=== PATIENT | female | born 1995 | race Caucasian/White ===

== ENCOUNTER 2023-01-30 10:01 | Outpatient (OUT) | payer MEDICAID, SELFPAY ==
--- NOTE | 2023-01-30 10:10 | MR_ITS ---
The [address] [address] Patient Name: KASSY BURGOS MRN: [id number] date: 1995 Sex: F Assigned Patient Location: MRI Current Patient Location: MRI Accession/Order Number: [id number] Exam Date: 01/30/2023 10:16 Report Date: 01/30/2023 12:35 At the request of: NON-STAFF PHYSICIAN Procedure: MR head/brain wo/w con MR head/brain wo/w con, 01/30/2023 10:16 AM EDT INDICATION: Chronic Migraine G43.709, Ataxia R27.0 COMPARISON: There is no appropriate prior study for comparison. TECHNIQUE: Multiplanar, multisequential MRI images of brain were obtained without and with injection of contrast. FINDINGS: The cerebral sulci as well as ventricular system are appropriate for age. There is no restricted diffusion. There is no intracranial mass, mass effect, midline shift, intra or extra-axial fluid collection or large hemorrhage. No abnormal enhancing lesion is noted. Normal flow-void in the intracranial vessels is noted. The visualized portions of orbits, mastoid air cells as well as paranasal sinuses are unremarkable. MR/MR head/brain wo/w con IMPRESSION: Normal MRI of the head. Electronically authenticated by: ZEFERINO SHER Date: 01/30/2023 12:35
== END 2023-01-30 10:02 | disposition home or self-care (01) ==
LOC: MRI 10:04
PROVIDERS: PCP Family Medicine
DX: G43.709 Chronic migraine without aura, not intractable, without status migrainosus (principal); R27.0 Ataxia, unspecified
CPT/HCPCS: 70553; A9575

== ENCOUNTER 2024-04-29 08:45 | Outpatient (OUT) | payer MEDICAID, SELFPAY ==
[2024-04-29 09:06] LABS: Basophils Percent Auto 0.6 % (0.2-2.0); Eosinophils Absolute Auto 0.2 10^3/uL (0.0-0.7); Eosinophils Percent Auto 3.2 % (0.9-7.0); Hematocrit 40.4 % (36.0-48.0); Hemoglobin 13.9 g/dL (12.0-16.0); Immature Granulocytes Abs Auto 0.03 10^3/uL (0.00-0.03); Immature Granulocytes Pct Auto 0.4 % (0.0-0.5); Lymphocytes Absolute Auto 1.5 10^3/uL (1.2-3.8); Lymphocytes Percent Auto 21.9 % (20.5-60.0); Mean Corpuscular HGB Conc 34.4 g/dL (29.9-35.2); Mean Corpuscular Hemoglobin 29.3 pg (26.7-34.0); Mean Corpuscular Volume 85.2 fL (81.0-99.0); Mean Platelet Volume 10.1 fL (9.5-13.5); Monocytes Absolute Auto 0.3 10^3/uL (0.3-0.8); Monocytes Percent Auto 4.5 % (1.7-12.0); Neutrophils Absolute Auto 4.8 10^3/uL (1.4-6.5); Neutrophils Percent Auto 69.4 % (43.0-75.0); Platelet Count 260 10^3/uL (150-450); Red Blood Count 4.74 10^6/uL (4.20-5.40); Red Cell Distribution Width 11.6 % (11.0-15.0); White Blood Count 6.9 10^3/uL (4.0-11.0)
[2024-04-29 09:11] LABS: Estimated Average Glucose 91 mg/dL; Glycohemoglobin A1C 4.8 % (4.5-6.2)
[2024-04-29 09:29] LABS: Alanine Aminotransferase 20 U/L (14-59); Albumin Level 3.3 g/dL (3.4-5.0); Alkaline Phosphatase 39 U/L (46-116); Anion Gap 11.4; Aspartate Amino Transferase 15 U/L (15-37); BUN Creatinine Ratio 11.7; Bilirubin Direct 0.1 mg/dL (0.0-0.2); Bilirubin Total 0.5 mg/dL (0.2-1.0); Calcium 8.9 mg/dL (8.5-10.1); Carbon Dioxide 28.7 mmol/L (21.0-32.0); Chloride 107 mmol/L (98-107); Estimated GFR (African America >60 (>=60 mL/min/1.73m^2); Estimated GFR (Non-African Ame >60 (>=60 mL/min/1.73m^2); Globulin 3.2 g/dL; Glucose 89 mg/dL (74-106); Potassium 4.1 mmol/L (3.5-5.1); Sodium 143 mmol/L (136-145); Total Protein 6.5 g/dL (6.4-8.2)
[2024-04-30 04:07] LABS: Insulin 5.8 uIU/mL (2.6-24.9)
== END 2024-04-29 08:46 | disposition home or self-care (01) ==
LOC: LAB 08:47
PROVIDERS: PCP Family Medicine; Visit Provider Family Medicine
DX: E16.2 Hypoglycemia, unspecified (principal); R42 Dizziness and giddiness
CPT/HCPCS: 36415; 80048; 80076; 83036; 83525; 85025

== ENCOUNTER 2024-06-26 10:15 | Outpatient (OUT) | payer MEDICAID, SELFPAY ==
--- OUTSIDE RECORDS SUMMARY | 2024-06-26 10:25 | XMS_ITS | CCD ---
Author Organization [facility] Care Team Providers [employer] F[employer] Professor Name Role Phone MARLON QUINONES Ludin Unavailable Unavailable ANNABELLE TORRES Unavailable Unavailable Matias, Brittney Unavailable CHANDANA DUFFY Admitting Unavailable ALTON .CHANDANA Attending Unavailable MATIAS, BRITTNEY Primary Care Unavailable ALTON . CHANDANA Consulting Unavailable MATIAS, BRITTNEY Admitting Unavailable MATIAS, BRITTNEY Attending Unavailable MATIAS, BRITTNEY Primary Care Unavailable MATIAS, BRITTNEY Consulting Unavailable Cary Barahona Unavailable NON STAFF Primary Care Provider UnavailMD Taqueria Gallegos Attending Provider YEMI BELTRAN Attending Unavailable RJ WALTON Attending Unavailable YEMI BELTRAN Attending Unavailable [place], Cary Admitting Unavailable Cary Barahona Attending Unavailable NON STAFF Primary Care Unavailable NON STAFF Primary Care Unavailable Taqueria Blackwell Admitting Unavailab Taqueria Harris Attending UnavailYemi Iqabl MD Primary Care Provider YEMI BELTRAN Primary Care Unavailable LINDSAY CORONEL Attending Unavailable YEMI BELTRAN Primary Care Unavailable Allergies Allergy Classification Reported Allergen(s) Allergy Type Date of Onset Reaction(s) Facility (9 sources) penicillAMINE Drug Allergy rash [facility] Other (1 source) Penicillin Drug Allergy [facility] Repository (1 source) penicillAMINE Drug Allergy 4 [facility] Repository (4 sources) penicillAMINE Drug Allergy 4 [facility] Work Phone: (5 sources) Penicillins; Translations: [PENICILLINS] Drug Allergy 9 Hives, Rash [facility] Medications Current Medications Medication Drug Class(es) Dates Sig (Normalized) Sig (Original) [id number] 200 actuat albuterol 0.09 mg/actuat metered dose inhaler (6 sources) beta2-Adrenergic Agonist Start: 10-26-2022 Ventolin HFA 108 (90 Base) MCG/ACT inhaler 10/26/2022 Active take 1 puff(s) by in halation every four hours as needed Albuterol Sulfate HFA 108 (90 Base) MCG/ACT 1 puff as needed Inhalation every 4 hrs Active take 1 puff(s) by in halation every four hours as needed Albuterol Sulfate HFA 108 (90 Base) MCG/ACT 1 puff as needed Inhalation every 4 hrs Active amitriptyline hydrochloride 50 mg oral tablet (4 sources) Tricyclic Antidepressant Start: 01-02-2024 take 1 tablet by mouth at bedtime amitriptyline (Elavil) 50 MG tablet Indications: Migraine with aura and without status migrainosus, not intractable (CMS/HCC) Take 1 tablet (50 mg) by mouth at bedtime 30 tablet 5 01/02/2024 Active dexmethylphenidate hydrochloride 10 mg oral tablet (2 sources) Central Nervous System Stimulant take 2 tablets by mouth every twelve hours Focalin 10 MG 2 tablet Orally Twice a day Active 168 hr ethinyl estradiol 0.18403 mg/hr / norelgestromin 0.30592 mg/hr transdermal system (5 sources) Progestin, Estrogen Start: 02-13-2024 apply 1 dose transdermal route every week norelgestromin-e thinyl estradiol (Ortho-Evra) 150-35 MCG/24HR Indications: Encounter for female control APPLY 1 PATCH WEEKLY FOR 3 WEEKS THEN REMOVE FOR 1 WEEK 3 patch 3 02/13/2024 Active Start: 09-12-2023 Norelgestromin -Ethin.Estradiol (Xulane) 150-35 mcg/24 hr patch weekly Active PATCH TOPICAL September 12, 2023 12:00am FLUoxetine 20 mg oral capsule (6 sources) Serotonin Reuptake Inhibitor Start: 01-02-2024 take 1 capsule by mouth once daily FLUoxetine (PROzac) 20 MG capsule Indications: Major depressive disorder, recurrent episode, mild (HCC) (CMS/HCC) Take 1 capsule (20 mg) by mouth Daily 30 capsule 5 01/02/2024 Active Start: 09-12-2023 Fluoxetine Act fatemeh MG PO September 12, 2023 12:00am Start: 09-12-2023 Fluoxetine Act fatemeh MG PO September 12, 2023 12:00am fluticasone propionate 0.05 mg/actuat metered dose nasal spray (1 source) Corticosteroid Start: 09-12-2023 take 1 spray(s) nasal route twice daily Fluticasone Propionate (Flonase Allergy Relief) 50 mcg/actuation spray,suspension Active 1 SPRAY INTRANASAL Twice daily 16 14 September 12, 2023 12:00am administer 1 spray into each nostril lamoTRIgine 25 mg oral tablet (4 sources) Mood Stabilizer, Anti-epileptic Agent Start: 01-02-2024 take 1 tablet by mouth once daily at bedtime, then take 2 tablets by mouth once daily at bedtime lamoTRIgine (LaMICtal) 25 MG tablet Indications: Major depressive disorder, recurrent episode, mild (HCC) (CMS/HCC) 1 PO QHS x 2 weeks then 2 PO QHS 60 tablet 3 01/02/2024 Active levoFLOXacin 750 mg oral tablet (3 sources) Quinolone Antimicrobial Start: 04-25-2024 End: 05-02-2024 take 1 tablet by mouth once daily levoFLOXacin (Levaquin) 750 MG tablet Indications: Acute non-recurrent pansinusitis Take 1 tablet (750 mg) by mouth Daily for 7 days 7 tablet 04/25/2024 05/02/2024 Active ondansetron 4 mg disintegrating oral tablet (5 sources) Serotonin-3 Receptor Antagonist Start: 02-23-2024 take 1 tablet by mouth every six hours for nausea ondansetron ODT (Zofran-ODT) 4 MG disintegrating tablet Indications: Migraine with aura and without status migrainosus, not intractable (CMS/HCC) Take 1 tablet (4 mg) by mouth every 6 (six) hours if needed for nausea or vomiting 30 tablet 02/23/2024 Active Start: 09-12-2023 take 8 mg by mouth e very eight hours Ondansetron Hcl Active 8 MG PO Q8H 21 7 September 12, 2023 12:00am rizatriptan 10 mg disintegrating oral tablet (9 sources) Serotonin-1b and Serotonin-1d Receptor Agonist Start: 04-25-2024 rizatriptan [employer] (Maxalt-[employer]) 10 MG disintegrating tablet Indications: Migraine with aura and without status migrainosus, not intractable (CMS/HCC) DISSOLVE 1 TABLET ON THE TONGUE AT ONSET OF HEADACHE NEEDED. REPEAT IN 2 HOURS IF NEEDED 9 tablet 5 04/25/2024 Active Start: 04-25-2024 rizatriptan ML T (Maxalt-[employer]) 10 MG disintegrating tablet Indications: Migraine with aura and without status migrainosus, not intractable (CMS/HCC) DISSOLVE 1 TABLET ON THE TONGUE AT ONSET OF HEADACHE NEEDED. REPEAT IN 2 HOURS IF NEEDED 9 tablet 5 04/25/2024 Active Start: 04-23-2024 End: 04-25-2024 rizatriptan (Maxalt) 10 MG t ablet Indications: Migraine with aura and without status migrainosus, not intractable (CMS/HCC) Take 1 tablet (10 mg) by mouth 1 (one) time if needed for migraine May repeat in 2 hours x1 9 tablet 2 04/23/2024 04/25/2024 Discontinued Start: 09-12-2023 Rizatriptan Ac tive MG PO September 12, 2023 12:00am take 1 tablet by raghav th every twenty-four hours Rizatriptan Benzoate 10 MG 1 tablet Orally Once a day Active traZODone hydrochloride 100 mg oral tablet (2 sources) Serotonin Reuptake Inhibitor take 1 tablet by mouth every twenty-four hours traZODone HCl 100 MG 1 tablet at bedtime Orally Once a day Active triamcinolone acetonide 1 mg/ml topical cream (10 sources) Corticosteroid Start: 021 Triamcinolone Acetonide 0.1 % 1 application to affected area Externally Twice a day for 5 days Mar, Active Start: 07-24-2020 KENALOG - 10 m g Jul, 40 mg Wrist Splint/Right XL - (2 sources) Start: 04-26-2023 Wrist Splint/R ight XL - as directed Apr, Active Completed/Discontinued Medications Medication Drug Class(es) Dates Sig (Normalized) Sig (Original) CAM Boot as directed (6 sources) Start: 11-29-2021 CAM Boot as directed as directed as directed as directed for as directed Nov, Not-Taking/PRN Start: 11-29-2021 CAM Boot as di rected as directed as directed as directed for as directed Nov, Not-Taking Start: 11-29-2021 CAM Boot as di rected as directed as directed as directed for as directed Nov, Active cloNIDine hydrochloride 0.1 mg oral tablet (9 sources) Central alpha-2 Adrenergic Agonist Start: 07-17-2020 take 1 tablet by mouth once daily at bedtime cloNIDine HCl 0.1 MG 1 tablet Orally Once a day at bedtime for 30 day(s) Jun, Not-Taking/PRN dexamethasone 1 mg/ml / tobramycin 3 mg/ml ophthalmic suspension (6 sources) Aminoglycoside Antibacterial, Corticosteroid Start: 11-29-2021 take 1 drop(s) into the eye(s) three times daily as needed Tobramycin-dexAMETHas one 0.3-0.1 % 1 drop into affected eye Ophthalmic Three times a day for 5 day(s) Nov, Not-Taking/PRN famotidine 20 mg oral tablet (9 sources) Histamine-2 Receptor Antagonist Start: 07-24-2020 take 1 tablet by mouth every twelve hours Famotidine 20 MG 1 tablet Orally Twice a day for 7 days Jul, Not-Taking/PRN hydrOXYzine hydrochloride 10 mg oral tablet (9 sources) Antihistamine Start: 07-13-2020 take 1 tablet by mouth twice daily as needed hydrOXYzine HCl 10 MG 1 tablet as needed Orally twice daily for 30 day(s) Jun, Not-Taking/PRN methylPREDNISolone 4 mg oral tablet (5 sources) Corticosteroid Start: 06-02-2022 methylPREDNISolone 4 MG as directed Orally Once a day for 6 days May, Not-Taking/PRN Start: 04-19-2021 methylPREDNISo lone 4 MG as directed Orally Once a day for 6 days Mar, Active mupirocin 0.02 mg/mg topical ointment (6 sources) RNA Synthetase Inhibitor Antibacterial Start: 11-29-2021 Mupirocin 2 % 1 application to affected area Externally 2 times a day for 7 days Nov, Not-Taking/PRN tobramycin 3 mg/ml ophthalmic solution (6 sources) Aminoglycoside Antibacterial Start: 11-29-2021 take 2 drop(s) into the eye(s) three times daily as needed Tobramycin 0.3 % 2 drop into affected eye Ophthalmic tid for 5 days Nov, Not-Taking/PRN Start: 11-29-2021 take 2 drop(s) into the eye(s) three times daily Tobramycin 0.3 % 2 drop into affected eye Ophthalmic tid for 5 days Nov, Not-Taking 24 hr venlafaxine 37.5 mg extended release oral capsule (9 sources) Serotonin and Norepinephrine Reuptake Inhibitor Venlafaxine HCl ER 3 7.5 MG TAKE 1 CAPSULE BY MOUTH EVERY DAY WITH FOOD Orally Once a day for 30 days Not-Taking/PRN take 1 capsule by mo uth once daily at mealtime Venlafaxine HCl ER 150 MG TAKE 1 CAPSULE BY MOUTH EVERY DAY WITH FOOD for 30 Active Problems Active Problems Problem Classification Problem Date Documented Date Episodic/Chronic Adjustment disorders (7 sources) Grief finding; Translations: [Adjustment disorder with depressed mood] Chronic Anxiety disorders (20 sources) Posttraumatic stress disorder; Translations: [Post-traumatic stress disorder, unspecified] Onset: 04-26-2023 04-26-2023 Chronic Attention-deficit, conduct, and disruptive behavior disorders (5 sources) Attention deficit hyperactivity disorder; Translations: [Attention-deficit hyperactivity disorder, unspecified type] Chronic Attention-deficit, conduct, and disruptive behavior disorders (4 sources) Attention deficit hyperactivity disorder, combined type; Translations: [Attention-deficit hyperactivity disorder, combined type] Onset: 04-26-2023 04-26-2023 Chronic Conditions associated with dizziness or vertigo (5 sources) Lightheadedness; Translations: [Dizziness and giddiness] Onset: 04-25-2024 04-25-2024 Episodic Headache; including migraine (6 sources) Migraine with aura; Translations: [Migraine with aura, not intractable, without status migrainosus] Onset: 10-10-2023 10-10-2023 Chronic Immunizations and screening for infectious disease (4 sources) Contact with and (suspected) exposure to infections with a predominantly sexual mode of transmission; Translations: [CONTCT W EXPOS INFECT SEXUAL TRNSMS] Onset: 07-13-2022 Episodic Menstrual disorders (13 sources) Amenorrhea; Translations: [Amenorrhea, unspecified] Onset: 09-10-2021 Resolved: 09-10-2021 Chronic Mood disorders (4 sources) Recurrent major depressive episodes, mild ; Translations: [Major depressive disorder, recurrent, mild] Onset: 04-26-2023 04-26-2023 Chronic Nonspecific chest pain (3 sources) Chest pain, unspecified; Translations: [Chest pain] Onset: 03-21-2024 Episodic Other endocrine disorders (5 sources) Hypoglycemia; Translations: [Hypoglycemia, unspecified] Onset: 04-25-2024 04-25-2024 Chronic Other female genital disorders (1 source) Other specified noninflammatory disorders of vagina; Translations: [OTH SPEC NONINFLAMMATORY D/O VAGINA] Onset: 07-16-2022 Episodic Other inflammatory condition of skin (4 sources) Psoriasis; Translations: [Psoriasis, unspecified] Onset: 04-26-2023 04-26-2023 Chronic Other lower respiratory disease (1 source) Shortness of breath; Translations: [Shortness of breath] Onset: 04-23-2024 Episodic Other nervous system disorders (9 sources) Loss of taste; Translations: [Parageusia] Episodic Other non-traumatic joint disorders (3 sources) Effusion, right knee; Translations: [Effusion, right knee] Onset: 09-20-2017 Episodic Other non-traumatic joint disorders (1 source) Pain in right knee Episodic Other non-traumatic joint disorders (2 sources) Pain in right wrist Episodic Other upper respiratory infections (15 sources) Streptococcal sore throat; Translations: [Strep throat] Onset: 04-23-2024 04-25-2024 Episodic Pleurisy; pneumothorax; pulmonary collapse (1 source) Pleurisy; Translations: [Pleurisy] Onset: 03-21-2024 Episodic Residual codes; unclassified (9 sources) Insomnia; Translations: [Insomnia, unspecified] Episodic Superficial injury; contusion (2 sources) Contusion of right hand, initial encounter Episodic Unclassified (1 source) Pain in right wrist; Translations: [Pain in right wrist] Onset: 04-26-2023 Past or Other Problems Problem Classification Problem Date Documented Da te Episodic/Chronic E Codes: Natural/environment (1 source) Bitten or stung by nonvenomous insect and other nonvenomous arthropods, initial encounter Onset: 04-19-2021 Resolved: 04-19-2021 Episodic Inflammation; infection of eye (except that caused by tuberculosis or sexually transmitteddisease) (1 source) Unspecified acute conjunctivitis, left eye Onset: 11-29-2021 Resolved: 11-29-2021 Episodic Other injuries and conditions due to external causes (1 source) Unspecified injury of left foot, initial encounter Onset: 11-29-2021 Resolved: 11-29-2021 Episodic Other injuries and conditions due to external causes (1 source) Unspecified injury of left wrist, hand and finger(s), initial encounter Onset: 11-29-2021 Resolved: 11-29-2021 Episodic Other lower respiratory disease (5 sources) Dyspnea; Translations: [Shortness of breath] Onset: 04-26-2023 04-26-2023 Episodic Residual codes; unclassified (4 sources) Persistent insomnia; Translations: [Insomnia, unspecified] Onset: 04-26-2023 04-26-2023 Episodic Sprains and strains (1 source) Unspecified sprain of left foot, initial encounter Onset: 11-29-2021 Resolved: 11-29-2021 Episodic Results Test Name Value Interpretation Reference Range Facility ALL CBC WITH AUTO DIFFon BASOPHILS ABSOLUTE AUTO 0 [facility] Basophils/100 WBC (Bld) 0.6 % 0.2 - 2.0 % [facility] Eosinophils/100 WBC (Bld) 3.2 % 0.9 - 7.0 % [facility] Erythrocyte distribution width (RBC) [Ratio] 11.6 % 11.0 - 15.0 % [facility] Hematocrit (Bld) [Volume fraction] 40.4 % 36.0 - 48.0 % [facility] Hem[facility] (Bld) [Mass/Vol] 13.9 g/dL 12.0 - 16.0 g/dL [facility] IMMATURE GRANULOCYTES ABS AUTO 0.03 [facility] Immature granulocytes/100 WBC (Bld) 0.4 % 0.0 - 0.5 % [facility] LYMPHOCYTES ABSOLUTE AUTO 1.5 [facility] Lymphocytes/100 WBC (Bld) 21.9 % 20.5 - 60.0 % [facility] MCH (RBC) [Entitic mass] 29.3 pg 26.7 - 34.0 pg [facility] MCHC (RBC) [Mass/Vol] 34.4 g/dL 29.9 - 35.2 g/dL [facility] MCV (RBC) [Entitic vol] 85.2 fL 81.0 - 99.0 fL [facility] MONOCYTES ABSOLUTE AUTO 0.3 [facility] Monocytes/100 WBC (Bld) 4.5 % 1.7 - 12.0 % [facility] NEUTROPHILS ABSOLUTE AUTO 4.8 [facility] Neutrophils/100 WBC (Bld) 69.4 % 43.0 - 75.0 % [facility] Platelet mean volume (Bld) [Entitic vol] 10.1 fL 9.5 - 13.5 fL [facility] TBH EO # 0.2 [facility] PLT 260 [facility] RBC 4.74 [facility] WBC 6.9 [facility] AND AUTO DIFFon 04-23-20 24 ABSOLUTE BASOPHIL 0.1 X10E9/L Normal 0.0-0.2 [facility] Comment on above: Performed By: #### C ADALBERTO CMP, 79399-8, 74724-1, 40334-0 #### [facility] ([id number]) [address] [place] [address] 81805 ABSOLUTE NEUTROPHIL 5.9 X10E9/L Normal 1.5-6.[address] [facility] Comment on above: Performed By: #### Ludin GLOVER CMP, 93863-8, 70182-3, 04891-3 #### [facility] ([id number]) [address] [place] [address] 03186 Basophils/100 WBC (Bld) 0.6 % Normal [facility] Comment on above: Performed By: #### Ludin GLOVER, CMP, 79853-6, 21337-2, 96547-7 #### [facility] ([id number]) [address] [place] [address] 74772 Eosinophils (Bld) [#/Vol] 0.1 10*3/uL Normal 0.0-0.4 [facility] Comment on above: Performed By: #### C BCA, CMP, 19530-0, 56980-3, 81934-8 #### [facility] ([id number]) [address] [place] [address] 18144 Eosinophils/100 WBC (Bld) 0.9 % Normal [facility] Comment on above: Performed By: #### C BCA, CMP, 20104-8, , 20385-2 #### [facility] ([id number]) [address] [place] [address] 31605 Erythrocyte distribution width (RBC) [Ratio] 12.6 % Normal 11.5-15.0 [facility] Comment on above: Performed By: #### Ludin BCA, CMP, 72031-1, , 14471-0 #### [facility] ([id number]) [address] [place] [address] 22992 Hematocrit (Bld) [Volume fraction] 38.1 % Normal 35-47 [facility] Comment on above: Performed By: #### C BCA, CMP, 34830-6, , 28088-3 #### [facility] ([id number]) [address] [place] [address] 47273 Hemoglobin (Bld) [Mass/Vol] 13.4 g/dL Normal 11.7-15.5 [facility] Comment on above: Performed By: #### C BCA, CMP, 09421-6, , 91993-6 #### [facility] ([id number]) [address] [place] [address] 07960 Lymphocytes (Bld) [#/Vol] 1.7 10*3/uL Normal 1.0-3.5 [facility] Comment on above: Performed By: #### Ludin BCA, CMP, 28609-6, , 42137-1 #### [facility] ([id number]) [address] [place] [address] 85328 Lymphocytes/100 WBC (Bld) 20.3 % Normal [facility] Comment on above: Performed By: #### C ADALBERTO, CMP, 04913-3, 82694-9, 29758-9 #### [facility] ([id number]) [address] [place] [address] 09838 MCH (RBC) [Entitic mass] 29.5 pg Normal 27-34 [facility] Comment on above: Performed By: #### C ADALBERTO, CMP, 39572-3, , 74061-3 #### [facility] ([id number]) [address] [place] [address] 66462 MCHC (RBC) [Mass/Vol] 35.3 g/dL Normal 32-36 [facility] Comment on above: Performed By: #### C ADALBERTO, CMP, 27856-0, , 66839-5 #### [facility] ([id number]) [address] [place] [address] 49693 MCV (RBC) [Entitic vol] 84 fL Normal 80-100 [facility] Comment on above: Performed By: #### C ADALBERTO, CMP, 97115-3, , 05709-5 #### [facility] ([id number]) [address] [place] [address] 56774 Monocytes (Bld) [#/Vol] 0.5 10*3/uL Normal 0-0.9 [facility] Comment on above: Performed By: #### C BCA, CMP, 00384-2, , 05721-9 #### [facility] ([id number]) [address] [place] [address] 85828 Monocytes/100 WBC (Bld) 5.8 % Normal [facility] Comment on above: Performed By: #### C BCA, CMP, 22699-7, 69275-7, 92700-1 #### [facility] ([id number]) [address] [place] [address] 97289 Neutrophils/100 WBC (Bld) 72.4 % Normal [facility] Comment on above: Performed By: #### Ludni BCA, CMP, 26516-1, 66175-2, 08009-0 #### [facility] ([id number]) [address] [place] [address] 33844 Platelet mean volume (Bld) [Entitic vol] 8.2 fL Normal 7-12 [facility] Comment on above: Performed By: #### C BCA, CMP, 07576-6, 47958-7, 77316-2 #### [facility] ([id number]) [address] [place] [address] 31842 Platelets (Bld) [#/Vol] 276 10*3/uL Normal 150-450 [facility] Comment on above: Performed By: #### C BCA, CMP, 59491-9, 90140-7, 78323-9 #### [facility] ([id number]) [address] [place] [address] 90786 RBC COUNT 4.56 X10E12/L Normal 3.80-5.20 [facility] Comment on above: Performed By: #### Ludin BCA, CMP, 01878-4, , 10923-9 #### [facility] ([id number]) [address] [place] [address] 82019 WBC (Bld) [#/Vol] 8.2 10*3/uL Normal 4.0-11.0 [facility] Comment on above: Performed By: #### Ludin BCA, CMP, 84600-6, 37653-0, 17019-5 #### [facility] ([id number]) [address] [place] [address] 18254 COMPREHENSIVE METABOLIC PANE Marbin 04-23-2024 Albumin [Mass/Vol] 4.0 g/dL Normal 3.2-5.3 [facility] Comment on above: Performed By: #### C BCA, CMP, 24975-1, 21701-9, 56136-1 #### [facility] ([id number]) [address] [place] [address] 19693 ALP [Catalytic activity/Vol] 39 U/L Normal 39-130 [facility] Comment on above: Performed By: #### C BCA, CMP, 98086-7, 08880-4, 14724-4 #### [facility] ([id number]) [address] [place] [address] 13464 ALT [Catalytic activity/Vol] 15 U/L Normal 0-31 [facility] Comment on above: Performed By: #### C BCA, CMP, 77133-5, 87147-5, 71536-5 #### [facility] ([id number]) [address] [place] [address] 25088 Anion gap [Moles/Vol] 9 mmol/L Normal 5-15 [facility] Comment on above: Performed By: #### C BCA, CMP, 69189-6, 80624-8, 48560-8 #### [facility] ([id number]) [address] [place] [address] 57840 AST [Catalytic activity/Vol] 19 U/L Normal 0-41 [facility] Comment on above: Performed By: #### C BCA, CMP, 79714-8, 20500-3, 00350-2 #### [facility] ([id number]) [address] [place] [address] 94593 Bilirubin [Mass/Vol] 0.6 mg/dL Normal 0.3-1.2 [facility] Comment on above: Performed By: #### C BCA, CMP, 22669-7, 94236-3, 75562-0 #### [facility] ([id number]) [address] [place] [address] 71029 Calcium [Mass/Vol] 8.9 mg/dL Normal 8.5-10.5 [facility] Comment on above: Performed By: #### C BCA, CMP, 81520-4, 93502-1, 65192-9 #### [facility] ([id number]) [address] [place] [address] 94769 Chloride [Moles/Vol] 103 mmol/L Normal 98-109 [facility] Comment on above: Performed By: #### C BCA, CMP, 54035-1, 91755-9, 75556-9 #### [facility] ([id number]) [address] [place] [address] 23427 CO2 [Moles/Vol] 23 mmol/L Normal 22-32 [facility] Comment on above: Performed By: #### C BCA, CMP, 41722-7, 35802-1, 92196-9 #### [facility] ([id number]) [address] [place] [address] 69926 Creatinine [Mass/Vol] 0.62 mg/dL Normal 0.40-1.00 [facility] Comment on above: Result Comment: METH OD TRACEABLE TO IDMS STANDARD Performed By: #### C BCA, CMP, 16051-6, 60319-2, 49782-3 #### [facility] ([id number]) [address] [place] [address] 91027 eGFR (CKD-EPI) NON-RACE DEPENDENT >90 Normal >59 [facility] Comment on above: Result Comment: Reported eGFR is based on the CKD-EPI 2020 equation that does not use a race coefficient. Performed By: #### C BCA, CMP, 37821-7, 77412-6, 85617-8 #### [facility] ([id number]) [address] [place] [address] 55249 Glucose [Mass/Vol] 111 mg/dL High 65-99 [facility] Comment on above: Performed By: #### C ADALBERTO, CMP, 37250-2, 02581-6, 45586-0 #### [facility] ([id number]) [address] [place] [address] 64460 Potassium [Moles/Vol] 3.4 mmol/L Low 3.5-5.0 [facility] Comment on above: Performed By: #### C ADALBERTO, CMP, 18509-0, 82158-1, 52541-1 #### [facility] ([id number]) [address] [place] [address] 67241 Protein [Mass/Vol] 6.8 g/dL Normal 6.0-8.0 [facility] Comment on above: Performed By: #### Ludin GLOVER, CMP, 19179-1, 17389-0, 06328-5 #### [facility] ([id number]) [address] [place] [address] 84955 Sodium [Moles/Vol] 135 mmol/L Normal 134-146 [facility] Comment on above: Performed By: #### Ludin GLOVER, CMP, 02181-5, 97587-8, 38521-1 #### [facility] ([id number]) [address] [place] [address] 42910 Urea nitrogen [Mass/Vol] 14 mg/dL Normal 5-23 [facility] Comment on above: Performed By: #### C BCA, CMP, 97779-3, 96875-1, 05741-6 #### [facility] ([id number]) [address] [place] [address] 18250 Fibrin D-dimer DDU (PPP) [Ma ss/Vol]on 04-23-2024 D DIMER <150 Normal <255 [facility] Comment on above: Result Comment: Results <255 ng/mL DDU: The presence of a VTE can safely be excluded with a negative D-Dimer result and Wells score. A negative result doesn't exclude the possibility of DIC. The test be repeated along with other diagnostic tests if the patient's symptoms persist or worsen. [email or web address] Performed By: #### C BCA, CMP, 97268-9, 71851-2, PINR, 64971-8, 31581-5 #### [facility] ([id number]) [address] [place] [address] 40076 MAGNESIUMon 04-23-2024 Magnesium [Mass/Vol] 2.0 mg/dL Normal 1.8-2.6 [facility] Comment on above: Performed By: #### C BCA, CMP, 67320-8, 31589-8, PINR, 44618-2, 66016-9 #### [facility] ([id number]) [address] [place] [address] 77357 SARS/FLU A+B/RSV by NAAT/Mol ecularon 04-23-2024 SARS/FLU A+B/RSV by NAAT/Molecular FLU A PCR Negative (qualifier value) FLU B PCR Negative (qualifier value) RSV by PCR Negative (qualifier value) SARS CoV 2 Not detected (qualifier value) NOTE The Xpert Xpress SARS-CoV-2/Flu/RSV Plus test is a rapid, multiplexed real-time RT-PCR test intended for the simultaneous qualitative detection and differentiation of SARS-CoV-2, influenza A, influenza B and respiratory syncytial virus (RSV) viral RNA from individuals suspected of respiratory viral infection consistent with COVID-19 by their healthcare provider. This test has not been validated in asymptomatic patients. The Xpert Xpress SARS-CoV-2 test is intended for use by qualified and trained operators who are performing tests using either [employer] or [employer] systems and is limited to laboratories that meet the CLIA requirements to perform high and moderate complexity tests. The Xpert Xpress SARS-CoV-2/Flu/RSV Plus is only for use under the Food and Drug Administration's Emergency Use Authorization. Results are for the simultaneous detection and differentiation of SARS-CoV-2, influenza A, influenza B and RSV nucleic acids in clinical specimens. SARS-CoV-2, influenza A, influenza B and RSV RNA identified by this test are generally detectable in upper respiratory samples during the acute phase of infection. Positive results are indicative of the presence of the identified virus, but do not rule out bacterial infection or co-infection with other pathogens not detected by this test. Clinical correlation with patient history and other diagnostic information is necessary to determine patient infection status. The agent detected may not be the definite cause of disease. Negative results do not preclude SARS-CoV-2, influenza A, influenza B and RSV infection and should not be used as the sole basis for treatment or other patient management decisions. Negative results must be combined with clinical observations, patient history and epidemiological information. An Invalid result may occur with specimen-associated inhibition unable to be resolved with specimen repeat. Fact Sheet for Healthcare Providers: https://www.fda.gov/ media/612167/downloa d Fact Sheet for Patients: https://www.fda.gov/ media/078062/downloa d Normal [facility] Troponin I.cardiac High sens itivity method [Mass/Vol]on 04-23-2024 TROPONIN I, HIGH SENSITIVITY <2 Normal <16 [facility] Comment on above: Performed By: #### C BCA, CMP, 71230-1, 85539-2, PINR, 23915-1, 15991-0 #### [facility] ([id number]) [address] [place] [address] [place] [address] XR CHEST 1 VWon 04-23-2024 XR CHEST 1 VW XR CHEST 1 VW Portable chest: HISTORY: Shortness of breath. Single view of the chest was obtained and compared to prior exam dated 03/21/2024. IMPRESSION: No acute findings. Finalized by Shailesh Pope MD on 04/23/2024 7:35 PM Normal [facility] CBC AND AUTO DIFFon 03-21-20 ABSOLUTE BASOPHIL 0.0 X10E9/L Normal 0.0-0.2 [facility] Comment on above: Performed By: #### C BCA, CMP, 24142-7, 03394-1, PINR, 88809-2, 85067-5 #### [facility] ([id number]) [address] [place] [address] 58200 ABSOLUTE NEUTROPHIL 5.6 X10E9/L Normal 1.5-6.[address] [facility] Comment on above: Performed By: #### C BCA, CMP, 14404-7, 30025-1, PINR, 23081-8, 77974-0 #### [facility] ([id number]) [address] [place] [address] 01380 Basophils/100 WBC (Bld) 0.5 % Normal [facility] Comment on above: Performed By: #### C BCA, CMP, 99047-1, 75327-4, PINR, 81217-4, 54940-0 #### [facility] ([id number]) [address] [place] [address] 81026 Eosinophils (Bld) [#/Vol] 0.2 10*3/uL Normal 0.0-0.4 [facility] Comment on above: Performed By: #### C BCA, CMP, 09224-8, 20425-7, PINR, 84326-8, 15369-3 #### [facility] ([id number]) [address] [place] [address] 31947 Eosinophils/100 WBC (Bld) 1.9 % Normal [facility] Comment on above: Performed By: #### C BCA, CMP, 28865-2, 59626-9, PINR, 18885-3, 09352-8 #### [facility] ([id number]) [address] [place] [address] 32838 Erythrocyte distribution width (RBC) [Ratio] 12.3 % Normal 11.5-15.0 [facility] Comment on above: Performed By: #### C BCA, CMP, 56854-7, 57447-2, PINR, 07777-7, 10659-7 #### [facility] ([id number]) [address] [place] [address] 46087 Hematocrit (Bld) [Volume fraction] 36.0 % Normal 35-47 [facility] Comment on above: Performed By: #### C BCA, CMP, 27843-8, 22103-5, PINR, 35629-0, 01691-3 #### [facility] ([id number]) [address] [place] [address] 80110 Hemoglobin (Bld) [Mass/Vol] 12.7 g/dL Normal 11.7-15.5 [facility] Comment on above: Performed By: #### C BCA, CMP, 58265-1, 10396-9, PINR, 27980-9, 36423-1 #### [facility] ([id number]) [address] [place] [address] 94418 Lymphocytes (Bld) [#/Vol] 2.1 10*3/uL Normal 1.0-3.5 [facility] Comment on above: Performed By: #### C BCA, CMP, 48581-8, 10465-4, PINR, 34976-9, 20206-8 #### [facility] ([id number]) [address] [place] [address] 79280 Lymphocytes/100 WBC (Bld) 25.3 % Normal [facility] Comment on above: Performed By: #### C BCA, CMP, 89175-1, 38185-4, PINR, 56592-3, 03552-6 #### [facility] ([id number]) [address] [place] [address] 23302 MCH (RBC) [Entitic mass] 29.6 pg Normal 27-34 [facility] Comment on above: Performed By: #### C BCA, CMP, 55660-6, 12462-9, PINR, 99345-7, 18594-7 #### [facility] ([id number]) [address] [place] [address] 28740 MCHC (RBC) [Mass/Vol] 35.2 g/dL Normal 32-36 [facility] Comment on above: Performed By: #### C BCA, CMP, 78705-0, 66462-0, PINR, 96814-6, 87222-9 #### [facility] ([id number]) [address] [place] [address] 05268 MCV (RBC) [Entitic vol] 84 fL Normal 80-100 [facility] Comment on above: Performed By: #### C BCA, CMP, 63520-5, 65283-3, PINR, 32935-1, 97555-4 #### [facility] ([id number]) [address] [place] [address] 26492 Monocytes (Bld) [#/Vol] 0.5 10*3/uL Normal 0-0.9 [facility] Comment on above: Performed By: #### C BCA, CMP, 12161-7, 30008-4, PINR, 37440-4, 66508-6 #### [facility] ([id number]) [address] [place] [address] 35728 Monocytes/100 WBC (Bld) 5.5 % Normal [facility] Comment on above: Performed By: #### C BCA, CMP, 28342-6, 66639-9, PINR, 80476-8, 90771-3 #### [facility] ([id number]) [address] [place] [address] 90838 Neutrophils/100 WBC (Bld) 66.8 % Normal [facility] Comment on above: Performed By: #### C BCA, CMP, 01498-8, 15000-1, PINR, 52698-1, 03190-2 #### [facility] ([id number]) [address] [place] [address] 30595 Platelet mean volume (Bld) [Entitic vol] 8.4 fL Normal 7-12 [facility] Comment on above: Performed By: #### C BCA, CMP, 37119-1, 13847-6, PINR, 37729-1, 69172-0 #### [facility] ([id number]) [address] [place] [address] 21627 Platelets (Bld) [#/Vol] 242 10*3/uL Normal 150-450 [facility] Comment on above: Performed By: #### C BCA, CMP, 62997-8, 85477-2, PINR, 49502-7, 36885-4 #### [facility] ([id number]) [address] [place] [address] 89785 RBC COUNT 4.28 X10E12/L Normal 3.80-5.20 [facility] Comment on above: Performed By: #### C BCA, CMP, 52792-1, 35412-4, PINR, 36995-1, 70261-7 #### [facility] ([id number]) [address] [place] [address] 61484 WBC (Bld) [#/Vol] 8.4 10*3/uL Normal 4.0-11.0 [facility] Comment on above: Performed By: #### C BCA, CMP, 85308-5, 77429-7, PINR, 71055-4, 02590-1 #### [facility] ([id number]) [address] [place] [address] 55088 COMPREHENSIVE METABOLIC PANE Marbin 03-21-2024 Albumin [Mass/Vol] 4.0 g/dL Normal 3.2-5.3 [facility] Comment on above: Performed By: #### C BCA, CMP, 98590-4, 95205-0, PINR, 62183-9, 90594-0 #### [facility] ([id number]) [address] [place] [address] 84545 ALP [Catalytic activity/Vol] 45 U/L Normal 39-130 [facility] Comment on above: Performed By: #### C BCA, CMP, 57965-4, 57399-8, PINR, 62011-5, 06691-4 #### [facility] ([id number]) [address] [place] [address] 67782 ALT [Catalytic activity/Vol] 16 U/L Normal 0-31 [facility] Comment on above: Performed By: #### C BCA, CMP, 49505-2, 58549-4, PINR, 31775-8, 00388-2 #### [facility] ([id number]) [address] [place] [address] 82301 Anion gap [Moles/Vol] 7 mmol/L Normal 5-15 [facility] Comment on above: Performed By: #### C BCA, CMP, 18865-7, 10168-6, PINR, 29605-2, 84217-8 #### [facility] ([id number]) [address] [place] [address] 80384 AST [Catalytic activity/Vol] 21 U/L Normal 0-41 [facility] Comment on above: Performed By: #### C BCA, CMP, 71605-0, 77105-0, PINR, 02445-3, 68087-2 #### [facility] ([id number]) [address] [place] [address] 88833 Bilirubin [Mass/Vol] 0.6 mg/dL Normal 0.3-1.2 [facility] Comment on above: Performed By: #### C BCA, CMP, 20075-1, 20253-0, PINR, 43673-9, 21799-4 #### [facility] ([id number]) [address] [place] [address] 81354 Calcium [Mass/Vol] 9.0 mg/dL Normal 8.5-10.5 [facility] Comment on above: Performed By: #### C BCA, CMP, 15117-9, 62065-6, PINR, 42437-1, 27766-2 #### [facility] ([id number]) [address] [place] [address] 75112 Chloride [Moles/Vol] 106 mmol/L Normal 98-109 [facility] Comment on above: Performed By: #### C BCA, CMP, 88331-3, 83532-4, PINR, 35482-7, 31408-5 #### [facility] ([id number]) [address] [place] [address] 34561 CO2 [Moles/Vol] 22 mmol/L Normal 22-32 [facility] Comment on above: Performed By: #### C BCA, CMP, 61670-5, 19011-4, PINR, 96870-4, 64347-9 #### [facility] ([id number]) [address] [place] [address] 16399 Creatinine [Mass/Vol] 0.84 mg/dL Normal 0.40-1.00 [facility] Comment on above: Result Comment: METH OD TRACEABLE TO IDMS STANDARD Performed By: #### C BCA, CMP, 69918-1, 93388-5, PINR, 40651-3, 53768-2 #### [facility] ([id number]) [address] [place] [address] 14832 eGFR (CKD-EPI) NON-RACE DEPENDENT >90 Normal >59 [facility] Comment on above: Result Comment: Reported eGFR is based on the CKD-EPI 2020 equation that does not use a race coefficient. Performed By: #### C BCA, CMP, 53197-5, 74438-0, PINR, 14695-5, 81568-4 #### [facility] ([id number]) [address] [place] [address] 55670 Glucose [Mass/Vol] 112 mg/dL High 65-99 [facility] Comment on above: Performed By: #### C BCA, CMP, 90053-3, 97163-6, PINR, 96539-6, 22234-5 #### [facility] ([id number]) [address] [place] [address] 65317 Potassium [Moles/Vol] 3.4 mmol/L Low 3.5-5.0 [facility] Comment on above: Performed By: #### C BCA, CMP, 40900-5, 17388-9, PINR, 65351-4, 06686-4 #### [facility] ([id number]) [address] [place] [address] 80497 Protein [Mass/Vol] 6.5 g/dL Normal 6.0-8.0 [facility] Comment on above: Performed By: #### C BCA, CMP, 34071-8, 31875-6, PINR, 20671-9, 99628-3 #### [facility] ([id number]) [address] [place] [address] 51869 Sodium [Moles/Vol] 135 mmol/L Normal 134-146 [facility] Comment on above: Performed By: #### C BCA, CMP, 12410-2, 60608-7, PINR, 51535-3, 05794-7 #### [facility] ([id number]) [address] [place] [address] 97402 Urea nitrogen [Mass/Vol] 14 mg/dL Normal 5-23 [facility] Comment on above: Performed By: #### C BCA, CMP, 18863-9, 48555-2, PINR, 48496-7, 98513-4 #### [facility] ([id number]) [address] [place] [address] 57630 Fibrin D-dimer DDU (PPP) [Ma ss/Vol]on 03-21-2024 D DIMER <150 Normal <255 [facility] Comment on above: Result Comment: Results <255 ng/mL DDU: The presence of a VTE can safely be excluded with a negative D-Dimer result and Wells score. A negative result doesn't exclude the possibility of DIC. The test be repeated along with other diagnostic tests if the patient's symptoms persist or worsen. [email or web address] Performed By: #### C ELANA GLOVER, 83877-1, 82728-3, PINR, 66787-6, 75744-7 #### [facility] ([id number]) [address] [place] [address] 82775 Natriuretic peptide B [Mass/ Vol]on 03-21-2024 Natriuretic peptide B (Bld) [Mass/Vol] 30 pg/mL Normal <100.0 [facility] Comment on above: Performed By: #### C ELANA GLOVER, 30628-1, 08865-8, PINR, 84278-3, 92815-5 #### [facility] ([id number]) [address] [place] [address] 34934 PROTIME AND INRon 03-21-2024 INR Coag (PPP) [Relative time] 1.1 {INR} Normal 0.8-1.1 [facility] Comment on above: Performed By: #### C ADALBERTO, ELANA, 50830-7, 41336-4, PINR, 95764-0, 78475-2 #### [facility] ([id number]) [address] [place] [address] 40881 PT Coag (PPP) [Time] 12.3 s Normal 9.8-13.2 [facility] Comment on above: Result Comment: NEW REFERENCE RANGE Performed By: #### C ELANA GLOVER, 50923-1, 84146-9, PINR, 08979-8, 92221-6 #### [facility] ([id number]) [address] [place] [address] 32911 Troponin I.cardiac High sens itivity method [Mass/Vol]on 03-21-2024 TROPONIN I, HIGH SENSITIVITY <2 Normal <16 [facility] Comment on above: Performed By: #### C BCA, CMP, 70529-0, 15113-1, PINR, 87048-8, 33552-3 #### [facility] ([id number]) [address] [place] [address] 63626 XR CHEST 1 VWon 03-21-2024 XR CHEST 1 VW XR CHEST 1 VW HISTORY: A 28-year-old female with the history of the left-sided chest pain. EXAM/TECHNIQUE: CHEST: Portable upright AP view COMPARISON: No prior relevant studies are available for comparison. FINDINGS: Both lungs and costophrenic angles are clear. There is no evidence of pulmonary infiltrate or acute pulmonary pathology. The cardiac silhouette is within normal limits. The trachea is in midline. The mediastinum is otherwise unremarkable. The hemidiaphragms are normal in position. The bony rib cage is intact. IMPRESSION: * No evidence of pulmonary infiltrate or acute pulmonary pathology. Finalized by Horacio Ren MD on 03/21/2024 10:07 PM Normal [facility] aPTT Coag (PPP) [Time]on aPTT Coag (Bld) [Time] 32 s Normal 26-37 [facility] Comment on above: Result Comment: NEW REFERENCE RANGE Performed By: #### C BCA, CMP, 67334-6, 63046-8, PINR, 75476-0, 10411-9 #### [facility] ([id number]) [address] [place] [address] 28857 XR wrist RT min 3V*on 2022 XR wrist RT min 3V* [facility] [address] [address] XRay Report Signed Patient: Kassy Burgos MR#: [id number] : 1995 Acct:[id number] Age/Sex: 27 / F ADM Date: 04/26/23 Loc: XDUCLY Room: Type: [facility] Attending Dr: Cary YANG Copies to: TREY Berger Ordering Provider: TREY Berger Date of Service: 04/26/23 XR/XR wrist RT min 3V*: M25.531 RIGHT WRIST - 4 views CLINICAL HISTORY: Patient hit wall with right hand now has pain right wrist for 3 days. COMPARISON: None FINDINGS: No focal soft tissue abnormality. Cortical regularity is seen along the styloid process of the ulna suggestive of prior injury. No acute fracture is seen on today's study. Small cyst involving the scaphoid bone without fracture. No bony erosions. XR/XR wrist RT min 3V* IMPRESSION: NO ACUTE BONY PROCESS. Impression dictated by: Cortez Patterson Jr., D.O.04/26/2023 4:40 PM Dictation Location: RADIO-PC-15 Transcribed By: [facility] 04/26/23 1640 Dictated By: Cortez Patterson Jr, DO 04/26/23 1639 Signed By: 04/26/23 1640 Normal [facility] XR wrist RT min 3V* [facility] Other XR wrist RT min 3V* [facility] Other XR wrist RT min 3V* [address] [facility] [place] Other XR wrist RT min 3V* [place] [address] [facility] [place] Other XR wrist RT min 3V* XRay Report [facility] Other XR wrist RT min 3V* Signed [place] [employer] [facility] [place] Other XR wrist RT min 3V* Patient: Kassy Burgos MR#: [id number] [employer] Other XR wrist RT min 3V* [id number] [facility] Other XR wrist RT min 3V* : 1995 Acct:[id number] [facility] Other XR wrist RT min 3V* Age/Sex: 27 / F ADM Date: 04/26/23 [facility] Other XR wrist RT min 3V* Loc: XDUCLY Room: Type: [facility] Other XR wrist RT min 3V* Attending Dr: Cary YANG [facility] Other XR wrist RT min 3V* Copies to: TREY Berger [facility] Other XR wrist RT min 3V* Ordering Provider: TREY Berger [facility] Other XR wrist RT min 3V* Date of Service: 04/26/23 [facility] Other XR wrist RT min 3V* XR/XR wrist RT min 3V*: M25.531 [facility] Other XR wrist RT min 3V* RIGHT WRIST - 4 views [facility] Other XR wrist RT min 3V* CLINICAL HISTORY: Patient hit wall with right hand now has pain right wrist for 3 days. [facility] Other XR wrist RT min 3V* COMPARISON: None [facility] Other XR wrist RT min 3V* FINDINGS: [facility] Other XR wrist RT min 3V* No focal soft tissue abnormality. Cortical regularity is seen along the styloid process of the ulna [facility] Other XR wrist RT min 3V* suggestive of prior injury. No acute fracture is seen on today's study. Small cyst involving the [facility] Other XR wrist RT min 3V* scaphoid bone without fracture. No bony erosions. [facility] Other XR wrist RT min 3V* XR/XR wrist RT min 3V* [facility] Other XR wrist RT min 3V* IMPRESSION: [employer] Other XR wrist RT min 3V* NO ACUTE BONY PROCESS. [facility] Other XR wrist RT min 3V* Impression dictated by: Cortez Patterson Jr., DSrikanthOSrikanth04/26/2023 4:40 PM [facility] Other XR wrist RT min 3V* Dictation Location: [place] [address] [facility] Other XR wrist RT min 3V* Transcribed By: PWS 04/26/23 1640 [facility] Other XR wrist RT min 3V* Dictated By: Cortez Patterson Jr, DO 04/26/23 1639 [facility] Other XR wrist RT min 3V* Signed By: [facility] Other XR wrist RT min 3V* 04/26/23 1640 No [employer] Other CHLAMYDIA/GONOCOCCUS KARL (SW AB/URINE/PAPon 07-15-2022 Chlamydia trachomatis, KARL Negative Normal Negative [facility] Comment on above: Performed By: #### C T/NGNA #### [facility] [address] [address] [address] Leanne Castellanos Neisseria gonorrhoeae, KARL Negative Normal Negative [facility] Comment on above: Performed By: #### C T/NGNA #### [facility] [address] [address] [address] Leanne Castellanos VAGINITIS/VAGINOSIS DNA PROB Pillo 02-24-2023 Lynsey species Negative Normal Negative [facility] Comment on above: Performed By: #### V AGINT #### [facility] [address] [address] [address] Leanne Castellanos Gardnerella vaginalis Positive Abnormal Negative [facility] Comment on above: Performed By: #### V AGINT #### [facility] [address] [address] [address] Leanne Castellanos Trichomonas vaginalis Negative Normal Negative [facility] Comment on above: Performed By: #### V AGINT #### [facility] [address] [address] [address] Leanne Castellanos XR knee RT 4V*on 06-02-2022 XR knee RT 4V* [facility] Other XR knee RT 4V* [facility] Other XR knee RT 4V* [address] [place] [address] [facility] Other XR knee RT 4V* [place] [address] No rt [facility] Other XR knee RT 4V* XRay Report [facility] Other XR knee RT 4V* Signed [employer] Other XR knee RT 4V* Patient: Kassy Burgos MR#: [id number] [facility] Other XR knee RT 4V* [id number] [employer] Other XR knee RT 4V* : 1995 Acct:[id number] [facility] Other XR knee RT 4V* Age/Sex: 26 / F ADM Date: 06/02/22 [facility] Other XR knee RT 4V* Loc: XDCLY Room: Type: [facility] Other XR knee RT 4V* Attending Dr: Brittney Salcedo [employer] [facility] Other XR knee RT 4V* Copies to: MATIASKASSYBRITTNEY [employer] [facility] Other XR knee RT 4V* Ordering Provider: BRITTNEY SALCEDO [facility] Other XR knee RT 4V* Date of Service: 06/02/22 [facility] Other XR knee RT 4V* XR/XR knee RT 4V*: RIGHT KNEE PAIN/SWELLING [facility] Other XR knee RT 4V* 4 views RIGHT knee plain film [facility] Other XR knee RT 4V* COMPARISON:None [facility] Other XR knee RT 4V* HISTORY:RIGHT knee pain and swelling. No injury. [facility] Other XR knee RT 4V* No fracture, dislocation or focal soft tissue abnormality seen.Large suprapatellar joint effusion [facility] Other XR knee RT 4V* present. [place] [employer] [facility] [employer] Other XR knee RT 4V* XR/XR knee RT 4V* [employer] Other XR knee RT 4V* IMPRESSION:Large suprapatellar joint effusion. [employer] Other XR knee RT 4V* Impression dictated by: Jorge Moon M.D.06/02/2022 12:15 PM [employer] Other XR knee RT 4V* Dictation Location: [place] [id number] [employer] Other XR knee RT 4V* Transcribed By: ELVIS 06/02/22 1215 [employer] Other XR knee RT 4V* Dictated By: Jorge Moon DO 06/02/22 1213 [employer] Other XR knee RT 4V* Signed By: Holt Lucio roque Lyks Other XR knee RT 4V* 06/02/22 1215 [facility] [employer] Other XR foot LT min 3V*on 022 XR foot LT min 3V* [facility] Other XR foot LT min 3V* [facility] Other XR foot LT min 3V* [address] [place] [address] [facility] Other XR foot LT min 3V* [place] [address] [employer] Other XR foot LT min 3V* XRay Report [employer] Other XR foot LT min 3V* Signed [employer] Other XR foot LT min 3V* Patient: Kassy Burgos MR#: [id number] [employer] Other XR foot LT min 3V* [id number] [employer] Other XR foot LT min 3V* : 1995 Acct:[id number] [employer] Other XR foot LT min 3V* Age/Sex: 26 / F ADM Date: 11/29/21 [employer] Other XR foot LT min 3V* Loc: XDUCLY Room: Type: REG CLI [employer] Other XR foot LT min 3V* Attending Dr: Brittney LAZAR [employer] Other XR foot LT min 3V* Copies to: BRITTNEY SALCEDO [employer] Other XR foot LT min 3V* Ordering Provider: BRITTNEY SALCEDOC [employer] Other XR foot LT min 3V* Date of Service: 11/29/21 [employer] Other XR foot LT min 3V* XR/XR foot LT min 3V*: Injury of left foot, initial encounter [employer] Other XR foot LT min 3V* ([id number]) XR/XR finger LT thumb: Injury of left thumb, initial encounter [employer] Other XR foot LT min 3V* 3 viewsLEFT thumb plain film [employer] Other XR foot LT min 3V* COMPARISON:None [facility] [employer] Other XR foot LT min 3V* HISTORY:Fell injuring LEFT foot [employer] Other XR foot LT min 3V* No fracture, dislocation or focal soft tissue abnormality seen. [employer] Other XR foot LT min 3V* XR/XR finger LT thumb [employer] Other XR foot LT min 3V* IMPRESSION:No acute findings [employer] Other XR foot LT min 3V* 3 views LEFT foot [employer] Other XR foot LT min 3V* No fracture or dislocation. No acute soft tissue findings. [employer] Other XR foot LT min 3V* IMPRESSION: Unremarkable exam [employer] Other XR foot LT min 3V* Impression dictated by: Jorge Moon M.D.11/29/2021 12:31 PM [employer] Other XR foot LT min 3V* Dictation Location: [place] [address] [employer] Other XR foot LT min 3V* Transcribed By: PWS 11/29/21 1231 [employer] Other XR foot LT min 3V* Dictated By: Jorge Moon DO 11/29/21 1227 [facility] [employer] Other XR foot LT min 3V* Signed By: [employer] Other XR foot LT min 3V* 11/29/21 1231 [facility] [employer] Other PREG HCG QUALon 09-13-2021 , QUAL Negative Normal NEGATIVE [facility] Comment on above: Performed By: #### P REG #### [facility] [address] [address] [address] Leanne Castellanos ED Pat Eduon 01-25-2020 [place] [address] Emergency Department Discharge Instructions KASSY BURGOS, Please provide this information to your Primary Care/Specialist Name: BURGOSKASSY Current Date : 01/25/2020 10:50:07 : 1995 Primary Care Physician: Physician, No PCP Diagnosis : Follow-Up Instructions: KASSY BURGOS been given these follow-up instructions: FOLLOW-UP APPOINTMENTS: Provider: Specialty: Address: Date: No PCP Physician Family Practice; Internal Medicine Follow-up as needed Provider: Specialty: Address: Date: Follow up with primary care provider 3 to 4 days Comment: Call for an Appointment Laboratory Orders: Name: Status: Urinalysis with Microscopic Automatic Completed Test Urine Completed Radiology Orders: None Ordered Diagnostic Tests: None Ordered Procedure(s) and Patient Education(s) : Col GC Family Practice Referrals (Custom); Col GC Internal Medicine Referrals (Custom); Recurrent Migraine Headache EMERGENCY SERVICES MEDICATION LIST Lista de Medicaciones de los Servicios de Emergencia Name KASSY BURGOS MRN (COL)-[id number] PLEASE READ THE FOLLOWING REGARDING YOUR MEDICATIONS Based on the information available during your visit we have given you the medication instructions below. Continue taking medications you took prior to your visit unless you have been told to change. Please share this information with your own doctor. Carry a list of your medications with you in case of an emergency. Update it when medications are stopped, doses are changed, or new medications (including ifoi-gcp-uwtlxxj products) are added. If you have any questions, check with your doctor. Por la informaci??n disponible suha calabrese visita, las instrucciones de medicaci??n aparecen debajo. Favor de continuar tomando las medicaciones Ud. sybil?? antes de calabrese visita por lo menos que hay cambios. Favor de compartir esta informaci??n con calabrese medico. Lleva kaitlynn lista de medicaciones consigo por tavo de emergenc??a. Actualiza la lista cuando Ud. hiram de natan las medicaciones, si cambian las dosis, o si hay nuevas medicaciones a??adidas (incluyendo medicaciones vendidas sin prescripci??n). Favor de preguntar a calabrese medico por cualquier prosper. THESE ARE THE MEDICATIONS YOU SHOULD BE TAKING No Medications Documented MEDICATIONS GIVEN DURING MEDICAL VISIT diphenhydramine 25 mg last dose given on 01/25/2020 at 09:44 Route: IV Push Administer at 25 mg/min (for IV Push). ketorolac 15 mg last dose given on 01/25/2020 at 09:45 Route: IV Push Not recommended for patients over 65 years. metoclopramide 10 mg last dose given on 01/25/2020 at 09:45 Route: IV Push Lower doses can be given IV push undiluted over 1 to 2 minutes. Sodium Chloride 0.9% 1,000 mL last dose given on 01/25/2020 at 09:44 Route: Intravenous Bolus Infuse over 60 mins NON-MEDICATION PRESCRIPTION SCHEDULING PHONE NUMBER: MEDICATION CHANGE DETAILS (Not your Final Home Medication List) During the course of your visit, your home medication list was updated with the most current information. The details of those changes are shown below: NEW MEDICATIONS None UPDATED MEDICATIONS None UNCHANGED MEDICATIONS None STOP TAKING THESE MEDICATIONS None DO NOT TAKE UNTIL YOU TALK TO YOUR DOCTOR None [address] [address] Emergency Department Discharge Instructions Name: KASSY BURGOS Current Date: 01/25/2020 10:50:07 :1995 nbsp; Primary Physician: Physician, No PCP We would like to thank you for choosing [facility] for your emergency medical needs. We examined and treated you today on an emergency basis only. This was not a substitute for, or an effort to provide, complete medical care. In most cases, you must let your doctor (or the doctor we referred you to) check you again. Tell your doctor about any new or lasting problems. We cannot recognize and treat all injuries or illnesses in one emergency department visit. After you leave, you should follow the directions attached. When arranging for follow-up care with your physician/referral identify yourself as being seen in the emergency department. Instructions for obtaining X-rays: When following up with your doctor, you may need to take copies of your x-rays that were done in the Emergency Department. If you didn't receive these upon your discharge from the emergency department, please call . When the final report becomes available and it is reviewed, the emergency department will attempt to contact you if there are any changes in your instructions. It is important that you leave accurate information with us on how to contact you. IF you cannot be contacted, YOU must contact the follow-up doctor that you were assigned to make sure that the final official x-ray report does not require a change in your treatment. Instructions for obtaining medical records: If you need a copy of your medical records for follow-up, please contact the Health Information Management Department at . Their office hoursare 8 AM- 4:30 PM, Monday through Monday. Please note: Results are not immediately available. Please allow a minimum of 36 hours for documentation and results. If you were prescribed an antibiotic: Antibiotics are life-saving drugs and they need to be used properly. Your team might change your antibiotic because test results show that a different antibiotic would be better to treat your infection. Like all medications, antibiotics have side effects. Some can be serious. This includes the risk of getting an antibiotic-resistant infection later, which may be difficult to treat. Remember to take your antibiotics as prescribed. If you have any questions please talk to your healthcare team. Seatbelts: There is no doubt that seatbelts save lives. Everyday, people without seatbelts have more serious injuries. Have everyone buckle up, using age appropriate seatbelts or car seats, to reduce their risk of injury. Smoking: If you do smoke, we encourage you to stop. Smoking affects all aspects of your health and the health of those around you. Call the [employer] at 9-152-BHIR-USA or the [employer] at 3-916-TXM-7859 for more information. High blood pressure: Your screening blood pressure today was 115 mm Hg / . Hypertension (high blood pressure) is blood pressure over 120/80. People with hypertension should contact their primary care provider within 30 days to follow up. Check your patient portal for additional blood pressure information. Immunizations: Immunization is a way to protect against deadly infections. Discuss this with your child's network professional, or Public Health Department. Your family practice doctor can determine if you need pneumonia or flu vaccine. The [facility] Department can be reached at . Substance Abuse Program: Concerns with addiction to alcohol, benzodiazepines (Ativan or Xanax) and Opiates (Heroin, Percocet, OxyContin, Methadone or Fentanyl)? [facility] offers an inpatient Substance Abuse Program to help treat the symptoms associated with medical detoxification of addictive substances. The new program offers care for non- adults (18 and older) looking to break the chain to addictive chemicals. The Substance Abuse Program is a voluntary inpatient admission and it starts with a pre-screening phone call to a social security specialist. During the call, goals and objectives for recovery and how the patient will transition to outpatient care will be established. Please call [phone] to get help today. Domestic Violence: If you are a victim of domestic violence (physical, verbal, or emotional), you are not alone. Discuss this with your physician or a friend and call Choices Hotline ( for assistance and support. You are the most important factor in your recovery. Follow the provided instructions carefully. Take your medications as prescribed. Most importantly, see a doctor again as discussed. If you have problems that we have not discussed, call or visit your doctor right away. If you do not have a primary care physician, we have provided one for you to follow up with. When you call for an appointment, please inform them that you were seen in the emergency department and the date of your visit. If you are unable to reach your doctor and are still experiencing problems, return to the emergency department. For assistance finding a primary care physician, call the Physician Referral Line at . Suicide Hotline: Your mental and emotional well-being is important. If you are in a mental health crisis or are having thoughts of suicide, please call the nationwide suicide hotline, anytime day or night, at 0-703-824-WZPH. [employer]: With [employer] online patient portal you can check your hospital medical information any time, review and keep track of prescriptions, quickly access radiology and basic lab results, review all of your immunizations, allergies and medical history. In addition you can view your account balances and make payments online as well as manage a [employer] account for another adult such as spouse, parent or friend. Based on the tests ordered, there may be a delay in results posting to the patient portal. It's easy to sign up for [employer]: 1. Visit [employer] m/[employer] 2. Click on ??[place] for [employer]' 3. Verify your identity by entering your last name and date of (MM/DD/YYYY) 4. You'll be asked to set up a username and password. 5. Next, you'll create three security questions. Be sure to supply answers that are not easy for others to guess or discover. 6. If all information (first name, last name and date of ) matches what we have on file, we'll then send a PIN to your phone that you'll be asked to enter. 7. When your identity is verified, you'll be able to access your patient record. 8. Once all of this is complete and you've successfully activated your account, you'll be redirected to the [employer] login page. Login and check to see your results. Questions? For help with account enrollment, call [employer] Customer Support toll-free at [phone]. Pharmacy Information: Below is a list of 24 hour pharmacies that we are aware of. We suggest that you call the specific pharmacy for their hours before traveling to a location. Hours may vary on holidays. [facility] [address] [phone] [facility] [place], [place] [address] [phone] [address] [place], [place] [address] [phone] [address] [place], [place] [phone] [address] [place], [place] [phone] [address] [place], [place] [phone] [address] [place], [place] [phone] Take all medications as directed. If you need prescription assistance, contact the following agencies: ?? Partnership for Prescription Assistance at or www.[employer] Scientific[employer].org ?? [facility] at or www.CrowdSourcerx.org ?? www.[employer]ffinnova.Zefanclub is a site with many valuable coupons Patient Education Materials KASSY BURGOS has been given the following patient education materials: [address] [address] Name: KASSY BURGOS : 1995 Current Date: 01/25/2020 10:50:06 Primary Care Provider Name: Physician, No PCP, Physician Phone: Patient Education Materials KASSY BURGOS has been given the following patient education materials: Family Practice Referral Resources in [facility] Listed are Family Practice offices that are accepting new patients. [place] supplies this information for reference only. [facility] [address] [place], [place] [address] [phone] [facility] 36[address] [place], [place] [phone] [facility] [address] [place], [place] [phone] [facility] 4960 [facility] [address] [place], [place] [phone] [facility] [address] [place], [place] [phone] [facility] [address] [facility], [address] [place], [place] [address] [phone] [facility] 60[address] [facility], [address] [place], [place] [address] [facility] [address] [place], [place] [address] [facility] [address] [place], [place] [address] [facility] [address] [place], [place] [address] [facility] 1560 [facility] [address] [facility] 1550 [place], [place] [phone] [facility] [address] [place] [address], [address] [place], [place] [phone] Kalpesh Salazar MD 14[address] [place], [place] [phone] [facility] [address] [place], [place] [address] [facility] 4310 [facility], [facility] A [place], [place] [address] Internal Medicine Referral Resources in [facility] Listed are Internal Medicine offices that are accepting new patients. [place] supplies this information for reference only. [facility] Medicine [address] [place], [place] [address] [facility] 5[address] [place], [place] [address] [facility] Medicine [address] [place], [place] [address] [facility] [address] [place], [place] [phone] [facility] 4310 [facility], [address] [place], [place] [phone] [facility] [address] [place], [place] [address] [facility] Internal Medicine [address] [facility], [address] [place], [place] [phone] [facility] [address]7 [place], [place] [phone] Emergency Medicine Recurrent Migraine Headache A migraine headache is an intense, throbbing pain on one or both sides of your head. Recurrent migraines keep coming back. A migraine can last for 30 minutes to several hours. CAUSES The exact cause of a migraine headache is not always known. However, a migraine may be caused when nerves in the brain become irritated and release chemicals that cause inflammation. This causes pain. Certain things may also trigger migraines, such as: ???Alcohol. ???Smoking. ???Stress. ???Menstruation. ???Aged cheeses. ???Foods or drinks that contain nitrates, glutamate, aspartame, or tyramine. ???Lack of sleep. ???Chocolate. ???Caffeine. ???Hunger. ???Physical exertion. ???Fatigue. ???Medicines used to treat chest pain (nitroglycerine), control pills, estrogen, and some blood pressure medicines. SYMPTOMS ???Pain on one or both sides of your head. ???Pulsating or throbbing pain. ???Severe pain that prevents daily activities. ???Pain that is aggravated by any physical activity. ???Nausea, vomiting, or both. ???Dizziness. ???Pain with exposure to bright lights, loud noises, or activity. ???General sensitivity to bright lights, loud noises, or smells. Before you get a migraine, you may get warning signs that a migraine is coming (aura). An aura may include: ???Seeing flashing lights. ???Seeing bright spots, halos, or zigzag lines. ???Having tunnel vision or blurred vision. ???Having feelings of numbness or tingling. ???Having trouble talking. ???Having muscle weakness. DIAGNOSIS A recurrent migraine headache is often diagnosed based on: ???Symptoms. ???Physical examination. ???A CT scan or MRI of your head. These imaging tests cannot diagnose migraines but can help rule out other causes of headaches. ? TREATMENT Medicines may be given for pain and nausea. Medicines can also be given to help prevent recurrent migraines. HOME CARE INSTRUCTIONS ???Only take ujlm-mcc-mhxztpk or prescription medicines for pain or discomfort as directed by your health care provider. The use of long-term narcotics is not recommended. ???Lie down in a dark, quiet room when you have a migraine. ???Keep a journal to find out what may trigger your migraine headaches. For example, write down: ???What you eat and drink. ???How much sleep you get. ???Any change to your diet or medicines. ???Limit alcohol consumption. ???Quit smoking if you smoke. ???Get 7?9 hours of sleep, or as recommended by your health care provider. ???Limit stress. ???Keep lights dim if bright lights bother you and make your migraines worse. SEEK MEDICAL CARE IF: ???You do not get relief from the medicines given to you. ???You have a recurrence of pain. ???You have a fever. SEEK IMMEDIATE MEDICAL CARE IF: ???Your migraine becomes severe. ???You have a stiff neck. ???You have loss of vision. ???You have muscular weakness or loss of muscle control. ???You start losing your balance or have trouble walking. ???You feel faint or pass out. ???You have severe symptoms that are different from your first symptoms. MAKE SURE YOU: ???Understand these instructions. ???Will watch your condition. ???Will get help right away if you are not doing well or get worse. This information is not intended to replace advice given to you by your health care provider. Make sure you discuss any questions you have with your health care provider. Document Released: 01/31/2002 Document Revised: 05/29/2015 Document Reviewed: 01/13/2014 Elsevier Interactive Patient Education ?2016 Elsevier Inc. Patient Signature Responsible Green Party Relationship to Patient Clinician Signature Date ><><><><><><><><><>< ><><><><><><><><><>< ><><> Patient Visit Summary Signature KASSY BURGOS has been given the following list of patient education materials, prescriptions and follow-up instructions: AUBREY Barros ALEXA D, have received the above patient education materials/instructio ns and have verbalized understanding: Date Time Patient Signature Date Time Provider Signature Normal [facility] Test Urineon 01-24 HCG ( test) Ql (U) Negative Normal [facility] Comment on above: Performed By: #### 2 106-3 #### [facility] [address], [place] Urinalysis with Microscopic Automaticon 01-25-2020 Appearance (U) HAZY Abnormal CLEAR [facility] Comment on above: Performed By: #### 5 7020-0 #### [facility] [address], [place] Bilirubin Test strip (U) [Mass/Vol] Negative Normal NEGATIVE-NEGAT FATEMEH [facility] Comment on above: Performed By: #### 5 7020-0 #### [facility] [address], [place] Color (U) STRAW Abnormal YELLOW [facility] Comment on above: Performed By: #### 5 7020-0 #### [place] [id number] Glucose Test strip (U) [Mass/Vol] NORMAL Normal NORMAL [facility] Comment on above: Performed By: #### 5 7020-0 #### [place] [address] [address] Hemoglobin Ql (U) Negative Normal NEGATIVE-N EGAT FATEMEH [facility] Comment on above: Performed By: #### 5 7020-0 #### [address] Ketones (U) [Mass/Vol] Negative Normal NEGATIVE-NEGAT FATEMEH [facility] Comment on above: Performed By: #### 5 7020-0 #### [address] Leukocyte esterase Test strip Ql (U) Negative Normal NEGATIVE-NEGAT FATEMEH [facility] Comment on above: Performed By: #### 5 7020-0 #### [place] [address] [address] Nitrite Test strip (U) [Mass/Vol] Negative Normal NEGATIVE-NEGAT FATEMEH [facility] Comment on above: Performed By: #### 5 7020-0 #### [address] pH (U) 7.0 [pH] Normal 4.5-8.0 [facility] Comment on above: Performed By: #### 5 7020-0 #### [place] [address], [place] Protein (U) [Mass/Vol] Negative Normal NEGATIVE-NEGAT FATEMEH [facility] Comment on above: Performed By: #### 5 7020-0 #### [place] [address], [place] Specific gravity (U) [Rel density] 1.019 Normal 1.002-1.030 [facility] Comment on above: Performed By: #### 5 7020-0 #### [place] [address], [place] Urobilinogen Test strip (U) [Mass/Vol] NORMAL Normal NORMAL [facility] Comment on above: Performed By: #### 5 7020-0 #### [facility] [address] [place], [place] BRADEN Screenon 09-21-2017 BRADEN Screen Negative Normal NEG [facility] Comment on above: Result Comment: This test was run on the Image[employer]-See[employer] BRADEN test system. The system provides ten test results (HEp-2NA, dsDNA, SSA, SSB, Sm, MILK VENDOR, Scl-70, Deborah-1, Centromere and Histone analytes) from a single patient sample. A negative BRADEN screen indicates that the specimen was negative for all ten markers.Performed at [address] [address] Performed By: #### C RA TAMIKO, ANASCX ####[address] [address] #### CRP, SED ####[address] [place] [address] C-Reactive Proteinon 018 C reactive protein (CRP) 1.1 mg/L Normal 0.0-5.0 [facility] Comment on above: Result Comment: Perf ormed at [address] [place] [address] Performed By: #### C DP RA, ANASCX ####[address] [address] #### CRP, SED ####[address] [place] [address] CBC with Diffon 09-20-2017 Abs. Basophil 0.04 k/uL Normal 0.00-0.20 [facility] Comment on above: Performed By: #### C DP, RA, ANASCX ####[address] [address] #### CRP, SED ####[address] [place] [address] Abs.Neutrophil (Seg) 4.82 k/uL Normal 1.50-8.10 [facility] Comment on above: Performed By: #### C DP, RA, ANASCX ####[address] [address] #### CRP, SED ####[address] [place] [address] Basophils/100 WBC Auto (Bld) 1 % Normal 0-2 [facility] Comment on above: Performed By: #### C DP, RA, ANASCX ####[address] [address] #### CRP, SED ####[address] [place] [address] Eosinophils 0.18 10*3/uL Normal 0.00-0.44 [facility] Comment on above: Performed By: #### C DP, RA, ANASCX ####[address] [address] #### CRP, SED ####[address] [place] [address] Eosinophils/100 leukocytes 3 % Normal 1-4 [facility] Comment on above: Performed By: #### C DP, RA, ANASCX ####[address] [address] #### CRP, SED ####[address] [place] [address] Erythrocyte distribution width Auto Ratio (RBC) 12.7 % Normal 11.8-14.4 [facility] Comment on above: Performed By: #### C DP, RA, ANASCX ####[address] [address] #### CRP, SED ####[address] [place] [address] Erythrocytes (RBC) 5.24 10*6/uL High 3.95-5.11 [facility] Comment on above: Performed By: #### C RA TAMIKO, ANASCX ####[address] [address] #### CRP, SED ####[address] [place] [address] Erythrocytes (RBC) 0.0 per 100 WBC Normal 0.0 [facility] Comment on above: Performed By: #### C RA TAMIKO, ANASCX ####[address] [address] #### CRP, SED ####[address] [place] [id number] Granulocytes/100 WBC (Bld) 0.04 k/uL Normal 0.00-0.30 [facility] Comment on above: Result Comment: Perf ormed at [address] [address] Performed By: #### C RA TAMIKO, ANASCX ####[address] [address] #### CRP, SED ####[address] [place] [address] Hematocrit (HCT) 43.3 % Normal 36.3-47.1 [facility] Comment on above: Performed By: #### C RA TAMIKO, ANASCX ####[address] [address] #### CRP, SED ####[address] [place] [address] Hemoglobin mass conc (Bld) 14.3 g/dL Normal 11.9-15.1 [facility] Comment on above: Performed By: #### C DP, RA, ANASCX ####[address] [address] #### CRP, SED ####[address] [place] [address] Immature granulocytes #/vol (Bld) 1 % High 0 [facility] Comment on above: Performed By: #### C TAMIKO RA, ANASCX ####[address] [address] #### CRP, SED ####[address] [place] [address] Lymphocytes 1.69 10*3/uL Normal 1.10-3.70 [facility] Comment on above: Performed By: #### C TAMIKO RA, ANASCX ####[address] [address] #### CRP, SED ####[address] [place] [address] Lymphocytes/100 leukocytes 24 % Low 25-45 [facility] Comment on above: Performed By: #### C TAMIKO RA, ANASCX ####[address] [address] #### CRP, SED ####[address] [place] [address] MCH 27.3 pg Normal 25.2-33.5 [facility] Comment on above: Performed By: #### C TAMIKO, RA, ANASCX ####[address] [address] #### CRP, SED ####[address] [place] [address] MCHC mass conc (RBC) 33.0 g/dL Normal 28.4-34.8 [facility] Comment on above: Performed By: #### C DP, RA, ANASCX ####[address] [address] #### CRP, SED ####[address] [place] [address] MCV 82.6 fL Normal 82.6-102.9 [facility] Comment on above: Performed By: #### C DP, RA, ANASCX ####[address] [address] #### CRP, SED ####[address] [place] [address] Monocytes 0.43 10*3/uL Normal 0.10-1.40 [facility] Comment on above: Performed By: #### C DP RA, ANASCX ####[address] [address] #### CRP, SED ####[address] [place] [address] Monocytes/100 leukocytes 6 % Normal 2-8 [facility] Comment on above: Performed By: #### C DP, RA, ANASCX ####[address] [address] #### CRP, SED ####[address] , [place] [address] Neutrophil (Seg) 65 % High 34-64 [facility] Comment on above: Performed By: #### C DP, RA, ANASCX ####[address] [address] #### CRP, SED ####[address] [place] [address] Platelet mean volume (PMV) 9.8 fL Normal 8.1-13.5 [facility] Comment on above: Performed By: #### C DP, RA, ANASCX ####[address] [address] #### CRP, SED ####[address] [place] [address] Platelets 328 10*3/uL Normal 138-453 [facility] Comment on above: Performed By: #### C DP, RA, ANASCX ####[address] [address] #### CRP, SED ####[address] [place] [address] WBC (Leukocytes) 7.2 10*3/uL Normal 4.5-13.[address] [facility] Comment on above: Performed By: #### C DP, RA, ANASCX ####[address] [address] #### CRP, SED ####[address] [place] [address] Auto Diff Performed NOT REPORTED Normal [facility] Comment on above: Performed By: #### C DP, RA, ANASCX ####[address] [address] #### CRP, SED ####[address] [place] [address] Erythrocyte morphology NOT REPORTED Normal [facility] Comment on above: Performed By: #### C DP, RA, ANASCX ####[address] [address] #### CRP, SED ####[address] [place] [address] Platelets NOT REPORTED Normal [facility] Comment on above: Performed By: #### C DP, RA, ANASCX ####[address] [address] #### CRP, SED ####[address] [place] [address] WBC Morphology NOT REPORTED Normal [facility] Comment on above: Performed By: #### C DP, RA, ANASCX ####[address] [address] #### CRP, SED ####[address] [place] [address] RA Screenon 09-20-2017 RA Screen <10 Normal <14 [facility] Comment on above: Result Comment: Perf ormed at [address] [address] Performed By: #### C DP, RA, ANASCX ####[address] [address] #### CRP, SED ####[address] [place] [address] Sedimentation Rateon 018 Sedimentation Rate 7 mm Normal 0-20 [facility] Comment on above: Result Comment: Perf ormed at [address] [place] [address] Performed By: #### C DP, RA, ANASCX ####[address] [address] #### CRP, SED ####[address] , [place] [id number] Vital Signs Date Time Vital Sign Value Performing Clinician Facility 04-25-2024 09:14-0500 Body height 167.6 cm Yemi Beltran MD Work Phone: [facility] 04-25-2024 09:14-0500 Body mass index (BMI) [Ratio] 20.5 kg/m2 Yemi Beltran MD Work Phone: [facility] 04-25-2024 09:14-0500 Body temperature 97.11 [degF] Yemi Beltran MD Work Phone: [facility] 04-25-2024 09:14-0500 Body weight 57.61 kg Yemi Beltran MD Work Phone: [facility] 04-25-2024 09:14-0500 Diastolic blood pressure 58 mm[Hg] Yemi Beltran MD Work Phone: [facility] 04-25-2024 09:14-0500 Heart rate 77 /min Yemi Beltran MD Work Phone: [facility] 04-25-2024 09:14-0500 Respiratory rate 20 /min Yemi Beltran MD Work Phone: [facility] 04-25-2024 09:14-0500 SaO2% (BldA) [Mass fraction] 97 % Yemi Beltran MD Work Phone: [facility] 04-25-2024 09:14-0500 Systolic blood pressure 94 mm[Hg] Yemi Beltran MD Work Phone: [facility] 09-12-2023 09:21-0400 Body height 165.[address] [facility] 09-12-2023 09:21-0400 Body mass index (BMI) [Ratio] 21.6 kg/m2 [facility] 09-12-2023 09:21-0400 Body temperature 97.5 [degF] [facility] 09-12-2023 09:21-0400 Body weight 58.[address] [facility] 09-12-2023 09:21-0400 Heart rate 107 /min [facility] 09-12-2023 09:21-0400 Respiratory rate 16 /min [facility] 09-12-2023 09:21-0400 SaO2% (BldA) [Mass fraction] 98 % [facility] 04-26-2023 14:40-0500 Body height 165.1 cm Cary Barahona Other [facility] Other 04-26-2023 14:40-0500 Body mass index (BMI) [Ratio] 21.8 kg/m2 Cary Barahona Other [facility] Other 04-26-2023 14:40-0500 Body temperature 98.8 [degF] Cary Barahona Other [facility] Other 04-26-2023 14:40-0500 Body weight 59.42 kg Cary Barahona Other [facility] Other 04-26-2023 14:40-0500 Diastolic blood pressure 63 mm[Hg] Cary Barahona Other [facility] Other 04-26-2023 14:40-0500 Respiratory rate 18 /min Cary Barahona Other [facility] Other 04-26-2023 14:40-0500 SaO2% (BldA) [Mass fraction] 99 % Cary Barahona Other [facility] Other 04-26-2023 14:40-0500 Systolic blood pressure 126 mm[Hg] Cary Barahona Other [facility] Other 06-02-2022 12:30-0500 Body height 165.1 cm Brittney Salcedo Other [facility] Other 06-02-2022 12:30-0500 Body mass index (BMI) [Ratio] 21.41 kg/m2 Brittney Salcedo Other [facility] Other 01-12-2023 12:30-0500 Body temperature 98.3 [degF] Brittney Salcedo Other [facility] Other 06-02-2022 12:30-0500 Body weight 58.38 kg Brittney Salcedo Other [facility] Other 06-02-2022 12:30-0500 Diastolic blood pressure 76 mm[Hg] Brittney Salcedo Other [facility] Other 06-02-2022 12:30-0500 Respiratory rate 18 /min Brittney Salcedo Other [facility] Other 06-02-2022 12:30-0500 SaO2% (BldA) [Mass fraction] 98 % Brittney Salcedo Other [facility] Other 06-02-2022 12:30-0500 Systolic blood pressure 117 mm[Hg] Brittney Salcedo Other [facility] Other 11-29-2021 12:15-0400 Body height 165.1 cm Brittney Salcedo Other [facility] Other 11-29-2021 12:15-0400 Body mass index (BMI) [Ratio] 21.63 kg/m2 Brittney Salcedo Other [facility] Other 11-29-2021 12:15-0400 Body temperature 98.2 [degF] Brittney Salcedo Other [facility] Other 11-29-2021 12:15-0400 Body weight 58.97 kg Brittney Salcedo Other [facility] Other 11-29-2021 12:15-0400 Diastolic blood pressure 63 mm[Hg] Brittney Salcedo Other [facility] Other 11-29-2021 12:15-0400 Respiratory rate 18 /min Brittney Salcedo Other [facility] Other 11-29-2021 12:15-0400 SaO2% (BldA) [Mass fraction] 99 % Brittney Salcedo Other [facility] Other 11-29-2021 12:15-0400 Systolic blood pressure 100 mm[Hg] Brittney Salcedo Other [facility] Other 04-19-2021 17:45-0500 Body height 165.1 cm Brittney Salcedo Other [facility] Other 04-19-2021 17:45-0500 Body mass index (BMI) [Ratio] 19.63 kg/m2 Brittney Salcedo Other [facility] Other 04-19-2021 17:45-0500 Body temperature 98.9 [degF] Brittney Salcedo Other [facility] Other 04-19-2021 17:45-0500 Body weight 53.52 kg Brittney Salcedo Other [facility] Other 04-19-2021 17:45-0500 Diastolic blood pressure 47 mm[Hg] Brittney Salcedo Other [facility] Other 04-19-2021 17:45-0500 Respiratory rate 18 /min Brittney Salcedo Other [facility] Other 04-19-2021 17:45-0500 SaO2% (BldA) [Mass fraction] 99 % Brittney Salcedo Other [facility] Other 04-19-2021 17:45-0500 Systolic blood pressure 100 mm[Hg] Brittney Salcedo Other [facility] Other Encounters Encounter Date Encounter Type Care Provider Facility Start: 04-29-2024 End: 04-29-2024 Clinisync Result Encounter Yemi Beltran MD Work Phone: [facility] Unsolicited Start: 04-29-2024 End: 04-29-2024 Clinisync Result Encounter Yemi Beltran MD Work Phone: [facility] Unsolicited Start: 04-25-2024 End: 04-25-2024 Bamboo flowsheet Yemi Beltran MD Work Phone: [facility] Start: 04-25-2024 End: 04-25-2024 Bamboo flowsheet Yemi Beltran MD Work Phone: [facility] Start: 04-25-2024 End: 04-25-2024 Office outpatient visit 25 minutes Yemi Beltran MD Work Phone: [facility] Comment on above: Acute non-recurrent pansinusitis (Primary Dx); Hypoglycemia; Lightheaded; Migraine with aura and without status migrainosus, not intractable ([facility] Start: 04-23-2024 End: 04-23-2024 Emergency department patient visit YEMI BELTRAN [facility] Start: 03-21-2024 End: 03-21-2024 [facility] Start: 01-09-2024 ambulatory NON STAFF Facility:[facility] Start: 01-02-2024 End: 01-02-2024 ambulatory YEMI BELTRAN Not Available Start: 10-24-2023 End: 10-24-2023 ambulatory RJ WALTON Not Available Start: 10-10-2023 End: 10-10-2023 ambulatory YEMI BELTRAN Not Available Start: 09-12-2023 End: 09-12-2023 ambulatory NON STAFF [facility] Work Phone: Start: 09-12-2023 End: 09-12-2023 Patient encounter procedure [facility] Work Phone: Start: 07-19-2023 Registered [facility] Start: 04-26-2023 End: 04-26-2023 ambulatory Cary Brooklyn [facility] Other Start: 04-26-2023 Office outpatient vi sit 15 minutes Cary Barahona [facility] Start: 07-13-2022 End: 07-13-2022 ambulatory CHANDANA BIRMINGHAMEY . Facility: Start: 06-02-2022 End: 06-02-2022 ambulatory Brittney Matias Other [facility] Other Start: 06-02-2022 Office outpatient vi sit 15 minutes Brittney Matias [facility] Start: 01-10-2022 End: 01-10-2022 ambulatory Brittney Matias Other [facility] Other Start: 01-10-2022 Telephone encounter Brittneyjosiane Lopezl t [facility] Start: 12-31-2021 End: 12-31-2021 ambulatory Brittney Maitas Other [facility] Other Start: 12-31-2021 Telephone encounter Brittney Breaul t [facility] Start: 11-29-2021 End: 11-29-2021 ambulatory Brittney Matias Other [facility] Other Start: 11-29-2021 Office outpatient vi sit 15 minutes Brittney Matias [facility] Start: 09-23-2021 End: 09-23-2021 ambulatory Brittney Salcedo Other [facility] Other Start: 09-23-2021 Telephone encounter Brittney roque [facility] Start: 09-13-2021 End: 09-14-2021 ambulatory BRITTNEY SALCEDO Facility:[facility] Start: 09-10-2021 End: 09-10-2021 ambulatory Brittney Salcedo Other [facility] Other Start: 09-10-2021 Telephone encounter Brittney roque [facility] Start: 04-19-2021 End: 04-19-2021 ambulatory Brittney Salcedo Other [facility] Other Start: 04-19-2021 Office outpatient vi sit 15 minutes Brittney Salcedo [facility] Start: 09-20-2017 End: 09-21-2017 Ambulatory MARLON QUINONES [facility] Procedures Date Procedure Procedure Detail Performing Clinician Start: 04-29-2024 ALL CBC WITH AUTO DIFF Yemi Beltran MD Work Phone: Start: 09-20-2017 BRADEN SCREEN WITH REFLEX MARLON QUINONES Start: 09-20-2017 C-reactive protein ADARSH QUINONES Start: 09-20-2017 CBC WITH AUTO DIFFERENTIAL MARLON QUINONES Start: 09-20-2017 RHEUMATOID FACTOR KELLI QUINONES Start: 09-20-2017 SEDIMENTATION RATE ADARSH QUINONES Plan of Treatment Date Care Activity Detail Author Start: 06-26-2024 End: 06-26-2024 Patient encounter procedure 06/26/2024 9:15 AM EST Office Visit [facility] [address] [place] [phone] Yemi Beltran MD [address] [place] [id number] [facility] Start: 04-25-2024 End: 04-25-2025 Basic metabolic 1998 panel - Serum or Plasma Basic metabolic panel Lab Routine Hypoglycemia Expected: 04/25/2024 (Approximate), Expires: 04/25/2025 [facility] Comment on above: Expected: 04/25/2024 (Approximate), Expires: 04/25/2025 Start: 04-25-2024 End: 04-25-2025 CBC W Auto Differential panel - Blood CBC and differential Lab Routine Hypoglycemia Expected: 04/25/2024 (Approximate), Expires: 04/25/2025 [facility] Comment on above: Expected: 04/25/2024 (Approximate), Expires: 04/25/2025 Start: 04-25-2024 End: 04-25-2025 Hemoglobin A1c/Hemoglobin.total in Blood Hemoglobin A1c Lab Routine Hypoglycemia Expected: 04/25/2024 (Approximate), Expires: 04/25/2025 [facility] Comment on above: Expected: 04/25/2024 (Approximate), Expires: 04/25/2025 Start: 04-25-2024 End: 04-25-2025 Hepatic function 2000 panel - Serum or Plasma Hepatic function panel Lab Routine Hypoglycemia Lightheaded Expected: 04/25/2024 (Approximate), Expires: 04/25/2025 [facility] Comment on above: Expected: 04/25/2024 (Approximate), Expires: 04/25/2025 Start: 04-25-2024 End: 04-25-2025 Insulin, fasting Insulin, fasting Lab Routine Hypoglycemia Expected: 04/25/2024 (Approximate), Expires: 04/25/2025 [facility] Work Phone: Comment on above: Expected: 04/25/2024 (Approximate), Expires: 04/25/2025 Start: 04-25-2024 End: 04-25-2024 Patient encounter procedure 04/25/2024 9:00 AM EST Office Visit [facility] [address] [place] [address] Yemi Beltran MD [address] [place] [address] [phone] (work) Arrived [facility] Comment on above: Arrived Start: 01-21-2024 Influenza vaccination Influenza Vacc ine (#1) [facility] Payers Date Payer Category Payer Self-pay [id number] 2022 Medicaid [facility] [place] [id number] 2022 Medicaid [id number] 2017 Unknown [id number] 1996 Unknown [id number] 1996 Unknown [id number] 1996 Unknown [id number] 1996 Unknown [id number] 1996 Unknown [id number] 1996 Unknown [id number] 1996 Unknown [id number] 1959 Unknown [id number] Unknown [id number] Unknown [id number] Unknown [id number] Social History Date Type Detail Facility Unknown if ever smoked [facility] Start: 01-02-2024 End: 04-25-2024 Sex Assigned At [facility] Start: 09-12-2023 Tobacco smoking status [facility] Never smoked tobacco (finding) [facility] Start: 1995 Sex Assigned At Female [facility] Start: 01-09-2023 Tobacco smoking status [facility] Ex-smoker [facility] History of tobacco use Current smoker [facility] History of tobacco use Cigarette Smoker [facility] Start: 01-02-2024 End: 04-25-2024 Alcoholic beverage intake Current drinker of alcohol (finding) [facility] Start: 01-02-2024 End: 04-25-2024 History of Social function [facility] How often do you nee d to have someone help you when you read instructions, pamphlets, or other written material from your doctor or pharmacy [SILS] Never [facility] Do you belong to any clubs or organizations such as pentecostalism groups, unions, fraternal or athletic groups, or school groups? No [facility] Are you now , , , , never or living with a partner? Never [facility] How often to you hav e a drink containing alcohol? Monthly or less [facility] How often do you hav e 6 or more drinks on 1 occasion? Never [facility] Do you feel stress - tense, restless, nervous, or anxious, or unable to sleep at night because your mind is troubled all the time - these days [OSQ] Only a little [facility] (I/We) worried wheth er (my/our) food would run out before (I/we) got money to buy more. Never true [facility] Start: 1995 Sex assigned at Not on file [facility] Clinical Notes 04-19-2021 to 04-25-2024 Yemi Beltran MD - 04/25/2024 9:45 AM Mirian Beltran MD - 04/25/2024 9:44 AM Mirian Beltran MD - 04/25/2024 9:43 AM Mirian Beltran MD - 04/25/2024 9:00 AM EST Note Date & Type Note Facility 04-25-2024 History of Presen t illness Narrative Associated Problem(s): Lightheaded Frequent symptoms and possible insulin resistance. Check labs. Associated Problem(s): Hypoglycemia Check labs Associated Problem(s): Acute non-recurrent pansinusitis Stop zithromax. Take antibiotics for 7 days. Use prednisone for inflammation. Use sudafed or other decongestants as needed. Use Robitussin or Robitussin-DM for cough. Can use afrin for congestion but no longer than 3 days. Can use Mucinex to bring up phlegm. Use Motrin or Tylenol as needed for fever, aches, or pains. Increase fluid intake and rest. Should improve over next 5-7 days and if no better or worse call for re-evaluation. Images from the original note were not included. Subjective Patient ID: Kassy Burgos is a 28 y.o. female who presents for Dizziness (Light headed. Needs to eat something for it to stop). ER follow up from 04/23 for SOB and cough. C/o cough and congestion for several weeks. Developed PORRAS and sinus pressure in forehead and cheeks along with postnasal drip. Ears plugged and popping. Mild cough due to drainage but no SOB. Labs and chest x-ray negative. Given zithromax and prednisone. Not much improvement today. C/o lightheaded off and on for months. Notice starts to feel jittery and shaky. Eats and improved. Labs showed glucose 112 in ER. No history of gestational diabetes. Review of Systems Respiratory: Negative for cough, shortness of breath and wheezing. Cardiovascular: Negative for chest pain and palpitations. Gastrointestinal: Negative for abdominal pain, diarrhea, nausea and vomiting. Genitourinary: Negative for dysuria. Objective Physical Exam Constitutional: General: She is not in acute distress. Appearance: Normal appearance. HENT: Head: Normocephalic. Right Ear: Tympanic membrane normal. Left Ear: Tympanic membrane normal. Ears: Comments: TM clear but bulging with fluid bilaterally. Eyes: Extraocular Movements: Extraocular movements intact. Pupils: Pupils are equal, round, and reactive to light. Cardiovascular: Rate and Rhythm: Normal rate and regular rhythm. Heart sounds: No murmur heard. No friction rub. No gallop. Pulmonary: Effort: Pulmonary effort is normal. Breath sounds: Normal breath sounds. No wheezing, rhonchi or rales. Abdominal: General: Bowel sounds are normal. There is no distension. Palpations: Abdomen is soft. Tenderness: There is no abdominal tenderness. There is no guarding or rebound. Musculoskeletal: Cervical back: Neck supple. Right lower leg: No edema. Left lower leg: No edema. Neurological: Mental Status: She is alert. Assessment/Plan Problem List Items Addressed This Visit Migraine with aura and without status migrainosus, not intractable (CMS/HCC) Relevant Medications rizatriptan [employer] (Maxalt-[employer]) 10 MG disintegrating tablet Lightheaded Frequent symptoms and possible insulin resistance. Check labs. Relevant Orders Hepatic function panel Hypoglycemia Check labs Relevant Orders Insulin, fasting Hemoglobin A1c Basic metabolic panel CBC and differential Hepatic function panel Acute non-recurrent pansinusitis - Primary Stop zithromax. Take antibiotics for 7 days. Use prednisone for inflammation. Use sudafed or other decongestants as needed. Use Robitussin or Robitussin-DM for cough. Can use afrin for congestion but no longer than 3 days. Can use Mucinex to bring up phlegm. Use Motrin or Tylenol as needed for fever, aches, or pains. Increase fluid intake and rest. Should improve over next 5-7 days and if no better or worse call for re-evaluation. Relevant Medications levoFLOXacin (Levaquin) 750 MG tablet documented in this encounter [facility] 04-26-2023 Evaluation note Encounter Date Diagnosis Assessment Notes Apr, Right wrist pain (ICD-10 - M25.531) Records were obtained from [facility] for her visit today. The x-ray of the right hand was negative for fractures or dislocations of the right hand. Apr, Contusion of right hand, initial encounter (ICD-10 - S60.221A) Drink plenty fluids, get plenty of rest. Wear the wrist splint for comfort and compression. Ice and elevate your hand 2-3 times a day. Take Tylenol or Motrin as needed for pain or swelling. Off work today and tomorrow. Follow-up with your family physician if no improvement in 2 to 3 days Apr, Other Contusion material was printed [facility] Other 01-12-2023 Evaluation note* Encounter Date Diagnosis Assessment Notes Treatment Notes Treatment Clinical Notes May, Right anterior knee pain (ICD-10 - M25.561) Use RICE therapy as discussed: Rest, Ice Compression, Elevate. Apply ice to affected area 3-4 times daily (Do not place ice source directly on skin, must cover with towel-like material). Take medication as directed. Rest and elevate sore extremity as much as possible. Do not take OTC medication pain relievers if prescription of medication given in office today. Contact office of ortho due to history with this knee. May, Effusion, right knee (ICD-10 - M25.461) this has been ongoing issue for patient. Recommend follow up with ortho. Patient is going to call ortho after lunch [facility] Other 07-11-2022 Evaluation note* Encounter Date Diagnosis Assessment Notes Treatment Notes Treatment Clinical Notes Nov, Injury of left foot, initial encounter (ICD-10 - S99.922A) Nov, Sprain of left foot, initial encounter (ICD-10 - S93.602A) Use RICE therapy as discussed: Rest, Ice Compression, Elevate. Apply ice to affected area 3-4 times daily (Do not place ice source directly on skin, must cover with towel-like material). Take medication as directed. Rest and elevate sore extremity as much as possible. Do not take OTC medication pain relievers if prescription of medication given in office today. Contact office if no improvement of symptoms and we will help you get into a specialist. Nov, Injury of left thumb , initial encounter (ICD-10 - S69.92XA) Nov, Acute bacterial conjunctivitis of left eye (ICD-10 - H10.32) Use medication as directed. Recommend discarding makeup if applicable. Need to wash linens on bed. [facility] Other 04-22-2022 Evaluation note* Encounter Date Diagnosis Assessment Notes Treatment Notes Treatment Clinical Notes Aug, Amenorrhea (ICD-10 - N91.2) [facility] Other 11-29-2021 Evaluation note* Encounter Date Diagnosis Assessment Notes Treatment Notes Treatment Clinical Notes Mar, Bug bite, initial encounter (ICD-10 - W57.XXXA) Take medications as directed. Complete all doses. Unable to determine what type of insect cause bites. May try Calamine lotion and or Baking soda in bathtub for comfort. Follow up with primary care provider if no improvement of symptoms with treatment plan [facility] Other Evaluation noteNo InformationNort [facility] Other Evaluation noteNo assessment information available [facility] Work Phone: Evaluation note* Diagnosis Migraine with aura and without status migrainosus, not intractable (CMS/HCC)- Primary Major depressive disorder, recurrent episode, mild (HCC) (CMS/HCC) Major depressive disorder, recurrent episode, mild Posttraumatic stress disorder (CMS/HCC) Posttraumatic stress disorder Migraine with aura and without status migrainosus, not intractable (CMS/HCC)- Primary Major depressive disorder, recurrent episode, mild (HCC) (CMS/HCC) Major depressive disorder, recurrent episode, mild Posttraumatic stress disorder (CMS/HCC) Posttraumatic stress disorder Acute non-recurrent pansinusitis- Primary Hypoglycemia Hypoglycemia, unspecified Lightheaded Dizziness and giddiness Migraine with aura and without status migrainosus, not intractable (CMS/HCC) documented in this encounter [facility] N[facility]ative - Reported* Type Description Date Medical History psoriasis Medical History Arthritis Medical History PTSD Medical History ANXIETY Surgical History wisdom teeth Hospitalization History child x2 [facility] Other History general Narrative - Reported* Type Description Date Medical History psoriasis Medical History Arthritis Medical History PTSD Medical History ANXIETY Medical History Insomnia Surgical History wisdom teeth Hospitalization History child x2 [facility] Other Summary Purpose Family History No Family History Records FoundNo Family History Records FoundNo Family History Records FoundNo Family History Records FoundNo Family History Records FoundNo Family History Records Found Advance Directives Advance Directive Response Recorded Date/ Time Advance Directives No December 01 7:46am Hospital Course Note EMERGENCY DEPARTMENT DISCHAR GE SUMMARY PATIENT NAME:KASSY BURGOS MRN: [id number] AGE: 24 Years SEX: Female PHONE:[phone] DOS: 01/25/2020 09:06:00 : 1995 ATTENDING PHYSICIAN:Alcides Bowens MD PCP: Physician, No PCP CHIEF COMPLAINT: right sided headache Allergies penicillin (decreased taste) Problems Active Hemicrania migraine DISCHARGE DIAGNOSIS: DISCHARGE INSTRUCTIONS: [facility] Family Practice Referrals (Custom); [facility] Internal Medicine Referrals (Custom); Recurrent Migraine Headache ED PHYSICIAN DOCUMENTATION: DISPOSITION: Time of Departure From ER 01/25/2020 10:49 Discharge/Transfer From ER Home 01 MEDICATION LISTS: CURRENT MEDICATION LIST No Medications Documented MEDICATIONS GIVEN DURING MEDICAL VISIT diphenhydramine 25 mg last dose given on 01/25/2020 at 09:44 Route: IV Push Administer at 25 mg/min (for IV Push). ketorolac 15 mg last dose given on 01/25/2020 at 09:45 Route: IV Push Not recommended for patients over 65 years. metoclopramide 10 mg last (more content not included)... Chief Complaint and Reason for Visit Chief Complaint BH Congestion, bodyaches Additional Source Comments INFORMATION SOURCE (unrecogn ized section and content) DATE CREATED AUTHOR 11/09/2017 [facility] DATE CREATED AUTHOR AUTHOR'S ORGANIZ ATION 01/25/2020 [facility] DATE CREATED AUTHOR AUTHOR'S ORGANIZ ATION 07/16/2022 [facility] DATE CREATED AUTHOR AUTHOR'S ORGANIZ ATION 01/04/2024 [facility] DATE CREATED AUTHOR AUTHOR'S ORGANIZ ATION 01/18/2024 [facility] DATE CREATED AUTHOR AUTHOR'S ORGANIZ ATION 04/25/2024 [facility] REASON FOR VISIT (unrecogniz ed section and content) Reason Comments Dizziness Light headed. Needs to eat something for it to stop Care Teams (unrecognized sec tion and content) Team Status: Active Member Role Status Dates NON STAFF Primary Care Provider Active Team Status: Active Member Role Status Dates NON STAFF Primary Care Provider Active Start: July 19, 2023 Taqueria Blackwell MD Attending Provider Active Start: July 19, 2023 Team Status: Inactive Member Role Status Dates NON STAFF Primary Care Provider Active Start: September 12, 2023 End: September 12, 2023 Mary Beth APRN Attending Provider Active Start: September 12, 2023 End: September 12, 2023 Health And Fitness Professor Relationship Specialty Start Date End Date Yemi Beltran MD [address] [place] [id number] PCP - General Family Medicine 12/12/22 Health And Fitness Professor Relationship Specialty Start Date End Date Yemi Beltran MD [address] [place] [phone] PCP - General Family Medicine 12/12/22 Health And Fitness Professor Relationship Specialty Start Date End Date Yemi Beltran MD [address] [place] [phone] PCP - General Family Medicine 12/12/22 Goals (unrecognized section and content) Goals may be documented in a n alternate section FOR RECORDS PERTAINING TO PATIENTS WHO ARE OR HAVE BEEN ENROLLED IN A CHEMICAL DEPENDENCY/SUBSTANCEABUSE PROGRAM, SOME INFORMATION MAY BE OMITTED. This clinical summary was aggregated from multiple sources. Caution should be exercised in using it in the provision of clinical care. This summary normalizes information from multiple sources, and as a consequence, information in this document may materially change the coding, format and clinical context of patient data. In addition, data may be omitted in some cases. CLINICAL DECISIONS SHOULD BE BASED ON THE PRIMARY CLINICAL RECORDS. [facility]. provides no warranty or guarantee of the accuracy or completeness of information in this document.
[2024-06-26 10:36] LABS: Basophils Absolute Auto 0.1 10^3/uL (0.0-0.1); Basophils Percent Auto 0.7 % (0.2-2.0); Eosinophils Absolute Auto 0.3 10^3/uL (0.0-0.7); Eosinophils Percent Auto 3.4 % (0.9-7.0); Hematocrit 40.7 % (36.0-48.0); Hemoglobin 14.2 g/dL (12.0-16.0); Immature Granulocytes Abs Auto 0.03 10^3/uL (0.00-0.03); Immature Granulocytes Pct Auto 0.4 % (0.0-0.5); Lymphocytes Absolute Auto 1.6 10^3/uL (1.2-3.8); Lymphocytes Percent Auto 21.3 % (20.5-60.0); Mean Corpuscular HGB Conc 34.9 g/dL (29.9-35.2); Mean Corpuscular Hemoglobin 29.6 pg (26.7-34.0); Mean Corpuscular Volume 84.8 fL (81.0-99.0); Mean Platelet Volume 10.4 fL (9.5-13.5); Monocytes Absolute Auto 0.4 10^3/uL (0.3-0.8); Monocytes Percent Auto 4.7 % (1.7-12.0); Neutrophils Absolute Auto 5.1 10^3/uL (1.4-6.5); Neutrophils Percent Auto 69.5 % (43.0-75.0); Platelet Count 260 10^3/uL (150-450); Red Cell Distribution Width 11.8 % (11.0-15.0); White Blood Count 7.4 10^3/uL (4.0-11.0)
[2024-06-26 11:08] LABS: Anion Gap 15.2; BUN Creatinine Ratio 11.2; Carbon Dioxide 25.4 mmol/L (21.0-32.0); Chloride 104 mmol/L (98-107); Estimated GFR (African America >60 (>=60 mL/min/1.73m^2); Estimated GFR (Non-African Ame >60 (>=60 mL/min/1.73m^2); Glucose 94 mg/dL (74-106); Potassium 3.6 mmol/L (3.5-5.1); Sodium 141 mmol/L (136-145); TSH W/ REFLEX FT4 1.261 uIU/mL (0.358-3.740)
[2024-06-27 08:10] LABS: FSH 1.2 mIU/mL (.); Luteinizing Hormone(LH) 1.1 mIU/mL (.); Progesterone 0.3 ng/mL (.)
== END 2024-06-26 10:16 | disposition home or self-care (01) ==
LOC: LAB 10:16
PROVIDERS: PCP Family Medicine; Visit Provider Family Medicine
DX: N64.3 Galactorrhea not associated with childbirth (principal); N64.4 Mastodynia; F33.0 Major depressive disorder, recurrent, mild
CPT/HCPCS: 36415; 80048; 83001; 83002; 84144; 84146; 84443; 85025